=== PATIENT | female | born 1995 | race Caucasian/White ===

== ENCOUNTER 2018-03-02 13:01 | Emergency (ER) | payer MEDICAID, SELFPAY ==
[2018-03-02 13:02] VITALS: BP 115/67; PULSE 105; RESP 16; TEMP 36.8; O2SAT 95; BMI 31.2
--- NOTE | 2018-03-02 13:17 | ED.VISSUMM ---
- ER Visit Summary Date of Service: 03/02/18 Chief Complaint: Left ear pain for 1 week History of Present Illness: The patient is a 22 F who presents with left ear pain for 1 week. She denies any drainage. She does complain of pain with movement of the ear. She states she has not placed a Q-tip in her ear. She has been swimming a lot. She also is concerned she may be . It was determined she had a positive home test. She is late and complains of breast tenderness and frequency. She has no other complaints Physical Examination: Vital signs unremarkable. There is discomfort with pushing on the tragus and pulling on the auricle on the left side. The external auditory canal is erythematous with slight narrowing. TMs are normal bilaterally. There is no discomfort on the right side. Pupils equal round reactive paradoxic muscle intact. Nares patent no discharge. Posterior pharyngeal erythema or exudate. No skin lesions are noted. Test Results: None Emergency Department Course and Treatment: Cortisporin otic suspension Treatment Plan: Cortisporin otic suspension and follow-up with PCP as needed and follow-up with OB since she has a positive test. Disposition: Discharged to home Impression: 1. Acute otitis externa left ear 2. Positive home test This note was generated with [employer] dictation software. It may contain incorrect words, spelling, and punctuation that were not noted in review of the chart prior to signing ED Disposition - Plan for ED Patient: Disposition: Home or Assisted Living Chief Complaint: Ear Problem Instructions: ED Otitis Externa Referrals: Care Physician,No Primary [Primary Care Provider] - Additional Instructions: Instill 4 drops of Cortisporin otic suspension right ear 4 times a day for the next 5-7 days. Keep water out of your ear.
[2018-03-02] MEDS: Neomycin Sulfate/Polymyxin/Hc Susp 10 ML Bottle 4 DRP OTIC (13:35)
== END 2018-03-02 13:37 | disposition home or self-care (01) ==
PROVIDERS: Emergency Provider Emergency Medicine
DX: H60.502 Unspecified acute noninfective otitis externa, left ear (principal); Z32.01 Encounter for pregnancy test, result positive; R35.0 Frequency of micturition
CPT/HCPCS: 99282

== ENCOUNTER 2018-03-16 13:33 | Emergency (ER) | payer MEDICAID, SELFPAY ==
[2018-03-16 13:33] VITALS: BP 108/63; PULSE 82; RESP 18; TEMP 37.1; O2SAT 99; BMI 30.7
--- NOTE | 2018-03-16 13:40 | EKG12_ITS ---
Test Reason : CP Blood Pressure : / mmHG Vent. Rate : 089 BPM Atrial Rate : 089 BPM P-R Int : 118 ms QRS Dur : 082 ms QT Int : 334 ms P-R-T Axes : 055 060 029 degrees QTc Int : 406 ms Normal sinus rhythm Normal ECG Confirmed by LATA PERLA ([id number]), city editor RADHA ANDERSON ([id number]) on 03/20/2018 1:44:59 PM Referred By: JOMAR/LELA Confirmed By:LATA PERLA
--- NOTE | 2018-03-16 13:45 | RAD_ITS ---
STUDY: X-RAY CHEST REASON FOR EXAM: Female, 22 years old. Right-sided pleuritic chest pain. TECHNIQUE: PA and lateral views of the chest. COMPARISON: None. FINDINGS: The lungs are clear and expanded. Scattered calcified granulomas There is no demonstrated pleural abnormality. Normal size heart. Normal mediastinum and olayinka. Normal visualized pulmonary arteries. Normal visualized aortic arch and descending thoracic aorta. Normal visualized thoracic spine. Normal visualized ribs, clavicles, and shoulders. There is no demonstrated abnormality of the visualized soft tissue structures of the upper abdomen. RAD/Chest PA and Lateral IMPRESSION: Normal x-ray examination of the chest. Electronically Signed: Nawaf Hernandez MD at 14:31 EDT Tel [phone], Service support ,
--- NOTE | 2018-03-16 13:48 | ED.DCSUM_ITS ---
- ER Visit Summary Date of Service: 03/16/18 Chief Complaint: Sharp right-sided pleuritic chest pain after taking a deep breath History of Present Illness: The patient is a 22 F who awoke. She took a deep breath and had sharp right-sided chest pain. Pain is mild. There is a pleuritic component. There is no history of PE or DVT. She is 4 weeks gestation. This is her second . She denies headache, any ocular, visual or auditory symptoms. She denies nasal congestion, rhinorrhea, postnasal drainage. She denies sore throat. She denies cough. She does complain of mild shortness of breath. She does complain of nausea. She also reports frequency. She has no other GI or symptoms. She denies vaginal bleeding. Denies leg pain, swelling discoloration. Physical Examination: Patient's vitals are normal. She is not hypoxic nor is she febrile. HEENT exam is unremarkable. Heart is regular without murmur, gallop or rub. S1 and S2 are normal. Lungs are clear to auscultation with good movement of air bilaterally. Equivocal chest pain to palpation. Abdomen is soft nontender. Bowel sounds are present normal. There is no asymmetry, swelling, discoloration, leg vein distention, palpable cords or tenderness along the distribution of the deep venous system. Test Results: EKG performed per nursing protocol is normal with a rate of 89. IN interval normal. Respiration normal. QT interval normal. [place] normal. Two -view chest x-ray reveals no evidence of pneumothorax or infiltrate. X-ray was interpreted by me. Emergency Department Course and Treatment: Patient is PERC negative. 4 weeks gestation is not risk for hypercoagulable state. Therefore d-dimer was not obtained. Because this occurred after taking a deep breath and she complains of shortness of breath will obtain chest x-ray to evaluate for pneumothorax. Treatment Plan: Since patient is Tylenol for discomfort Disposition: Discharged home Impression: Abrupt right-sided chest pain with pleuritic component unknown etiology This note was generated with [employer] dictation software. It may contain incorrect words, spelling, and punctuation that were not noted in review of the chart prior to signing ED Disposition - Plan for ED Patient: Disposition: Home or Assisted Living Chief Complaint: Chest Pain Instructions: ED Chest Pain NonCardiac Referrals: Care Physician,No Primary [Primary Care Provider] - Additional Instructions: Since you are take Tylenol for your chest pain.
== END 2018-03-16 14:42 | disposition home or self-care (01) ==
PROVIDERS: Emergency Provider Emergency Medicine
DX: O26.891 Other specified pregnancy related conditions, first trimester (principal); R07.81 Pleurodynia; Z3A.01 Less than 8 weeks gestation of pregnancy
CPT/HCPCS: 71046; 93005; 99282

== ENCOUNTER → 2018-03-23 18:27 | Outpatient (CLI) | payer MEDICAID, SELFPAY ==
[2018-03-23 20:32] LABS: Chlamydia Trachomatis by PCR Negative (Negative); Neisserai gonorrhoeae by PCR Negative (Negative); Probe Check PASS; Sample Adequacy Control PASS; Specimen Processing Control PASS
[2018-03-29 16:49] LABS: HPV Reflexed? NOT INDICATED
== END ==
PROVIDERS: Visit Provider Obstetrics & Gynecology
DX: Z12.4 Encounter for screening for malignant neoplasm of cervix (principal); Z11.3 Encounter for screening for infections with a predominantly sexual mode of transmission; Z34.81 Encounter for supervision of other normal pregnancy, first trimester
CPT/HCPCS: 87491; 87591; 88175; G0145

== ENCOUNTER → 2018-04-10 10:30 | Outpatient (CLI) | payer MEDICAID, SELFPAY ==
[2018-04-10 12:20] LABS: Color, Urine Yellow (Yellow); Glucose, Dipstick Normal (Normal); Ketone-Dipstick 50 mg/dl (Negative); Leukocyte Esterase-Dipstick 100 /ul (Negative); Nitrite-Dipstick Negative (Negative); Occult Blood-Urine Negative /ul (Negative); Protein-Dipstick Negative (Negative); Urine Bilirubin Dipstick Negative (Negative); Urine Clarity Clear (Clear); Urine Urobilinogen Normal (Normal)
[2018-04-10 12:23] LABS: Absolute Lymphocyte Count 2.14 X10^3/ul (0.83-4.51); Absolute Neutrophil Count 3.9 X10^3/uL (2.0-7.7); Basophil# 0.01 X10^3/uL; Basophil% 0.2 % (0-1); Eosinophil# 0.05 X10^3/uL; Eosinophils% 0.8 % (0-5); Hematocrit 38.7 % (37-47); Hemoglobin 12.9 g/dl (12.0-15.0); Lymphocyte # 2.14 X10^3/ul (4.0); Lymphocyte % 32.2 % (19-41); Mean Corp Hgb Conc 33.3 g/gl (32-36); Mean Corpuscular Hgb 27.4 pg (27.0-32.0); Mean Corpuscular Volume 82.3 fL (81-99); Mean Platelet Vol. 11.5 fl (6.2-12.0); Monocyte% 7.5 % (0-10); Neutrophil # 3.93 X10^3/uL (2.7-7.7); Neutrophil % 59.1 % (47-70); Platelet Count 209 K/mm3 (150-450); RBC Distribution Width CV 13.4 % (11.6-14.6); RBC Distribution Width SD 39.5 fl (35.1-43.9); White Blood Count 6.6 K/mm3 (4.4-11.0)
[2018-04-10 12:24] LABS: POSITIVE COUNT NO; POSITIVE DIFFERENTIAL NO; POSITIVE MORPHOLOGY NO
[2018-04-10 12:36] LABS: COTININE Drug Screen Positive (<200 ng/mL)
[2018-04-10 12:40] LABS: Thyroid Stim Hormone (TSH) 1.47 uIU/mL (0.358-3.74)
[2018-04-10 12:50] LABS: Amphetamine Urine VISTA NEGATIVE (<1000 ng/mL); Barbiturate Urine VISTA NEGATIVE (< 200 ng/mL); Benzodiazepine Urine VISTA NEGATIVE (< 200 ng/mL); Cocaine Urine VISTA NEGATIVE (< 300 ng/mL); Ecstacy Urine VISTA NEGATIVE (< 500 ng/mL); Methadone Urine VISTA NEGATIVE (< 300 ng/mL); PCP Urine VISTA NEGATIVE (< 25 ng/mL); THC Urine VISTA NEGATIVE (< 50 ng/mL); Vista UDS pH Range 6
[2018-04-11 09:11] LABS: HIV - WCH Non-Reactive (Nonreactive); Rubella IgG 11.1 IU/mL
[2018-04-11 11:59] LABS: HEPATITIS B SURFACE AG Negative (Negative); Hep C Antibodies 0.1 s/co ratio (0.0-0.9)
[2018-04-13 01:01] LABS: Prenatal RPR NONREACTIVE (NONREACTIVE)
== END ==
PROVIDERS: Visit Provider Obstetrics & Gynecology
DX: Z34.81 Encounter for supervision of other normal pregnancy, first trimester (principal)
CPT/HCPCS: 36415; 80307; 81002; 84443; 85025; 86703; 86762; 86803; 87340

== ENCOUNTER 2018-08-04 20:39 | Emergency (ER) | payer MEDICAID, SELFPAY ==
[2018-08-04 20:40] VITALS: BP 112/69; PULSE 104; RESP 14; TEMP 36.8; O2SAT 97; BMI 33.5
[2018-08-04] MEDS: Penicillin Vk 250 MG Tablet 500 MG PO (21:25)
--- NOTE | 2018-08-04 21:35 | ED.DCSUM_ITS ---
- ER Visit Summary Date of Service: 08/04/18 Chief Complaint: Dental pain History of Present Illness: The patient is a 22 F presenting due to concern for a dental abscess. Patient states that over the last 2 days she said development of a soft area in her gums over the left maxillary canine tooth. She denies any fevers or constitutional symptoms. Review of systems otherwise negative. Physical Examination: Area of fluctuance over the patient's left maxillary canine tooth. Teeth otherwise appear normal. Soft sublingual space, normal posterior oropharynx, normal Stensen's duct. No trismus. Test Results: No indicated Emergency Department Course and Treatment: Patient presented with potential dental abscess. 21-gauge needle was used to incise with a small amount of pus being expressed. Patient will be placed on penicillin. She was instructed to follow-up with the dentist. Disposition: Discharge Impression: 1. Dental abscess This note was generated with [employer] dictation software. It may contain incorrect words, spelling, and punctuation that were not noted in review of the chart prior to signing ED Disposition - Plan for ED Patient: Disposition: Home or Assisted Living Chief Complaint: Dental Diagnosis: Dental abscess Instructions: Dental Abscess Prescriptions: Penicillin Vk [Pen-Vee K 250MG] 500 mg PO 4X/DAY #80 tab Referrals: Care Physician,No Primary [Primary Care Provider] -
--- NOTE | 2018-10-20 10:04 | OB.TRI.NOTE ---
History of Present Illness Date of Service: 10/15/18 Was patient seen by the physician?: No Reason For Visit: R/O LABOR Date of Service: 10/15/18 Final ASHISH: 11/07/18 Final ASHISH Source: US <20 weeks Gestational age: 36 Weeks and 5 Days History of Present Illness: 36+ week intrauterine presents with some low pelvic pressure. Concerned that she may be in labor. Allergies aspirin [ASA] Allergy (Verified 10/15/18 19:21) Swelling codeine Allergy (Verified 10/15/18 19:21) Swelling latex Allergy (Verified 10/15/18 19:21) Rash Physical Exam Vitals: Vital Signs Temp Pulse Resp BP Pulse Ox 98.3 F 104 H 14 112/69 97 08/04/18 20:40 08/04/18 20:40 08/04/18 20:40 08/04/18 20:40 08/04/18 20:40 NST - FHR Rate Baby A NST Reactive:: Yes FHR Category:: Category I Impression/Plan 36+ week intrauterine with some low pelvic pressure and transient contractions. Occasional contraction noted on monitor but cervix is nonthreatening. Reactive nonstress test. No cervical change after monitoring. Transient contractions noted. Will release to home with routine instructions and routine follow-up in the office.
== END 2018-08-04 21:38 | disposition home or self-care (01) ==
LOC: ED 21:35 → OBT 10-15 19:01
PROVIDERS: Emergency Provider Emergency Medicine
DX: K04.7 Periapical abscess without sinus (principal)
CPT/HCPCS: 41800; 59025; 59050; 99218; 99283; G0378

== ENCOUNTER → 2018-08-17 14:52 | Outpatient (CLI) | payer MEDICAID, SELFPAY ==
[2018-08-04 20:40] VITALS: BMI 33.5
[2018-08-17 15:55] LABS: Hematocrit 32.4 % (37-47); Hemoglobin 10.8 g/dl (12.0-15.0); Mean Corp Hgb Conc 33.3 g/gl (32-36); Mean Corpuscular Hgb 28.5 pg (27.0-32.0); Mean Corpuscular Volume 85.5 fL (81-99); Mean Platelet Vol. 10.8 fl (6.2-12.0); Platelet Count 201 K/mm3 (150-450); RBC Distribution Width CV 12.8 % (11.6-14.6); RBC Distribution Width SD 38.8 fl (35.1-43.9); Red Blood Count 3.79 M/mm3 (4.2-5.4); White Blood Count 12.3 K/mm3 (4.4-11.0)
[2018-08-17 16:04] LABS: Scan Indicated on CBC? Y/N NO
[2018-08-17 16:11] LABS: Glucose Challenge Gest 1H 50g 108 mg/dL (70-140)
== END ==
PROVIDERS: Visit Provider Obstetrics & Gynecology
DX: Z34.83 Encounter for supervision of other normal pregnancy, third trimester (principal)
CPT/HCPCS: 36415; 82950; 85027

== ENCOUNTER 2018-09-11 21:45 | Outpatient (CLI) | payer MEDICAID, SELFPAY ==
[2018-09-11 22:01] VITALS: BMI 33.0
--- NOTE | 2018-09-12 07:44 | OB.TRI.NOTE ---
History of Present Illness Date of Service: 09/11/18 Reason For Visit: R/O LABOR Date of Service: 09/11/18 Final ASHISH: 11/13/18 Gestational age: 31 Weeks and 0 Days History of Present Illness: 22 yo 2P1 female with h/o prior 39 wk delivery presents with CC of contractions and urge to push. Allergies aspirin [ASA] Allergy (Verified 09/11/18 22:22) Swelling codeine Allergy (Verified 09/11/18 22:22) Swelling latex Allergy (Verified 09/11/18 22:22) Rash Physical Exam Cervix Dilation (cm): 0 - ext os FT and int os CLOSED Station: -2 Effacement (%): 40 - (not able to accurately assess this as int os closed) NST - FHR Rate Baby A Baseline: 110-120s with avg vraibility accels to 130-140 VD to 90-105 < 10 sec Variability:: Moderate Accelerations:: 15 x 15 Decelerations:: Variable - to 90 - 105 bpm lasting under 10 sec FHR Category:: Category I Uterine Activity:: No regular UCs noted. Impression/Plan 31 wk female with pelvic discomfort h/o term delivery FALSE LABOR Home Keep next ofc appt as planned.
== END 2018-09-11 23:00 | disposition home or self-care (01) ==
LOC: WPOUT 21:52 → OBT 21:52
PROVIDERS: Visit Provider Obstetrics & Gynecology
DX: O47.03 False labor before 37 completed weeks of gestation, third trimester (principal); Z3A.31 31 weeks gestation of pregnancy
CPT/HCPCS: 59025; 59050; 99218; G0378

== ENCOUNTER 2018-09-25 20:30 | Outpatient (CLI) | payer MEDICAID, SELFPAY ==
[2018-09-25 21:00] VITALS: BMI 33.6
[2018-09-25 21:40] LABS: ROM Internal Control Test YES-OK TO RESULT pt. (Internal QC); ROM Patient Test Negative (Negative); Record Kit Lot#, ROM+ J7836
--- NOTE | 2018-09-26 08:15 | OB.TRI.NOTE ---
History of Present Illness Date of Service: 09/25/18 Was patient seen by the physician?: No Reason For Visit: RULE OUT LABOR Date of Service: 09/25/18 Final ASHISH: 11/07/18 Final ASHISH Source: US <20 weeks Gestational age: 33 wk 6 days History of Present Illness: 22 yo female presesnts with CC of possible ROM. Prior 39 wk delivery. Allergies aspirin [ASA] Allergy (Verified 09/25/18 21:02) Swelling codeine Allergy (Verified 09/25/18 21:02) Swelling latex Allergy (Verified 09/25/18 21:02) Rash Laboratory Studies: Laboratory Tests 09/25/18 Range/Units 21:00 Vag Amniotic Fld Detect Negative (Negative) NST - FHR Rate Baby A Baseline: 120-130s avg variability accels to 160s Variability:: Moderate Accelerations:: 15 x 15 Decelerations:: Variable - quick less than 10 sec to 95 NST Reactive:: Yes, Appropriate for gestational age FHR Category:: Category I Uterine Activity:: no UCs. Impression/Plan 33 6/7 wk ? SROM NEG SROM False labor. home Keep next appt in ofc for PNV. Return PRN to [facility] for increased s/sx of labor, or for dec FM.
== END 2018-09-25 22:05 | disposition home or self-care (01) ==
LOC: WPOUT 20:52 → WP 20:52
PROVIDERS: Referring Provider Obstetrics & Gynecology; Visit Provider Obstetrics & Gynecology
DX: O47.03 False labor before 37 completed weeks of gestation, third trimester (principal); Z3A.33 33 weeks gestation of pregnancy
CPT/HCPCS: 59025; 59050; 84112; 99218; G0378

== ENCOUNTER → 2018-10-12 15:39 | Outpatient (CLI) | payer MEDICAID, SELFPAY ==
[2018-09-25 21:00] VITALS: BMI 33.6
== END ==
PROVIDERS: Visit Provider Obstetrics & Gynecology
DX: Z36.85 Encounter for antenatal screening for Streptococcus B (principal)
CPT/HCPCS: 87081

== ENCOUNTER 2018-10-15 18:55 | Outpatient (CLI) | payer MEDICAID, SELFPAY ==
[2018-10-15 19:10] VITALS: BMI 34.5
--- NOTE | 2018-10-20 10:07 | OB.TRI.NOTE ---
History of Present Illness Date of Service: 10/15/18 Was patient seen by the physician?: No Reason For Visit: Pelvic Pressure Date of Service: 10/15/18 Final ASHISH: 11/07/18 Final ASHISH Source: US <20 weeks Gestational age: 36 Weeks and 5 Days History of Present Illness: 36+ week intrauterine presents with some pelvic pressure and is concerned about being in labor. Allergies aspirin [ASA] Allergy (Verified 10/15/18 19:21) Swelling codeine Allergy (Verified 10/15/18 19:21) Swelling latex Allergy (Verified 10/15/18 19:21) Rash NST - FHR Rate Baby A NST Reactive:: Yes FHR Category:: Category I Impression/Plan 36+ week intrauterine with some low pelvic pressure and transient contractions. Occasional contraction noted on monitor but cervix is nonthreatening. Reactive nonstress test. No cervical change after monitoring. Transient contractions noted. Will release to home with routine instructions and routine follow-up in the office.
== END 2018-10-15 20:12 | disposition home or self-care (01) ==
LOC: WPOUT 10-16 10:24 → OBT 10-16 10:26
PROVIDERS: Visit Provider Obstetrics & Gynecology
DX: Z34.93 Encounter for supervision of normal pregnancy, unspecified, third trimester (principal); Z3A.36 36 weeks gestation of pregnancy
CPT/HCPCS: 59025; 59050; 99218; G0378

== ENCOUNTER 2018-10-20 16:55 | Outpatient (CLI) | payer MEDICAID, SELFPAY ==
[2018-10-20 17:29] VITALS: BMI 34.0
[2018-10-20 17:56] LABS: ROM Internal Control Test YES-OK TO RESULT pt. (Internal QC); ROM Patient Test Negative (Negative); Record Kit Lot#, ROM+ J7836
--- NOTE | 2018-10-22 10:22 | OB.TRI.NOTE ---
History of Present Illness Was patient seen by the physician?: No Reason For Visit: RULE OUT SROM Date of Service: 10/20/18 Final ASHISH: 11/07/18 Final ASHISH Source: US <20 weeks Gestational age: 37 Weeks and 3 Days History of Present Illness: 37+ week intrauterine presents with problems of low back pain and some discharge. care unremarkable except the patient is a smoker. Allergies aspirin [ASA] Allergy (Verified 10/15/18 19:21) Swelling codeine Allergy (Verified 10/20/18 17:32) Swelling Doesn't make her feel better latex Allergy (Verified 10/15/18 19:21) Rash Laboratory Studies: Laboratory Tests 10/20/18 Range/Units 17:15 Vag Amniotic Fld Detect Negative (Negative) Physical Exam Presentation: Cephalic Cervix Dilation (cm): 0 Station: -2 Effacement (%): 50 NST - FHR Rate Baby A Baseline: 110-120 NST Reactive:: Yes FHR Category:: Category I Uterine Activity:: Minimal uterine activity Impression/Plan 37+ week intrauterine with false labor; ROM test was negative. No change in cervix after monitoring. Reactive nonstress test. To return if she has problems with decreased movement or if labor discomfort increases.
== END 2018-10-20 18:40 | disposition home or self-care (01) ==
LOC: WPOUT 17:17 → WP 17:17
PROVIDERS: Visit Provider Obstetrics & Gynecology
DX: O47.1 False labor at or after 37 completed weeks of gestation (principal); O99.333 Smoking (tobacco) complicating pregnancy, third trimester; Z3A.37 37 weeks gestation of pregnancy
CPT/HCPCS: 59025; 59050; 84112; 99218; G0378

== ENCOUNTER 2018-10-24 17:50 | Outpatient (CLI) | payer MEDICAID, SELFPAY ==
[2018-10-24 18:03] VITALS: BMI 33.8
[2018-10-24 18:46] LABS: ROM Internal Control Test YES-OK TO RESULT pt. (Internal QC); ROM Patient Test Negative (Negative); Record Kit Lot#, ROM+ J7836
--- NOTE | 2018-10-26 08:47 | OB.TRI.NOTE ---
History of Present Illness Date of Service: 11/21/18 Was patient seen by the physician?: No Reason For Visit: RULE OUT LABOR Date of Service: 11/21/18 Final ASHISH: 11/07/18 Final ASHISH Source: US <20 weeks Gestational age: 38 Weeks and 2 Days History of Present Illness: Worried possibly with SROM and some cramping Allergies aspirin [ASA] Allergy (Verified 10/15/18 19:21) Swelling codeine Allergy (Verified 10/24/18 18:17) Nausea Doesn't make her feel better latex Allergy (Verified 10/15/18 19:21) Rash Laboratory Studies: Laboratory Tests 10/24/18 Range/Units 18:07 Vag Amniotic Fld Detect Negative (Negative) Physical Exam General: Alert, Oriented x3, Cooperative, No apparent distress Abdomen: Soft, Non Tender, Non-Distended, Gravid, Appropriate for Gestational Age Neurological: Neuro grossly intact 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 No signs of active labor.
== END 2018-10-24 18:52 | disposition home or self-care (01) ==
LOC: WPOUT 17:51 → OBT 17:54
PROVIDERS: Visit Provider Obstetrics & Gynecology
DX: Z34.93 Encounter for supervision of normal pregnancy, unspecified, third trimester (principal); Z3A.38 38 weeks gestation of pregnancy
CPT/HCPCS: 59025; 59050; 84112; 99218; G0378

== ENCOUNTER 2018-10-26 14:30 | Outpatient (CLI) | payer MEDICAID, SELFPAY ==
[2018-10-26 14:53] VITALS: BMI 33.6
[2018-10-26] MEDS: Lactated Ringers 1,000 ML 125 ML IV (15:03)
--- NOTE | 2018-10-27 06:28 | OB.TRI.NOTE ---
History of Present Illness Date of Service: 10/26/18 Was patient seen by the physician?: Yes Reason For Visit: VERSION Date of Service: 10/26/18 Final ASHISH: 11/07/18 Final ASHISH Source: US <20 weeks Gestational age: 38 Weeks and 3 Days History of Present Illness: 22 yo female at 38 + wk with fetus in Breech presentation on sono. MARCI 17 cm and EFW 6# 5 oz. Posterior placenta. Sent in for ECV attempt. Allergies aspirin [ASA] Allergy (Verified 10/26/18 15:01) Swelling codeine Allergy (Verified 10/26/18 15:01) Nausea Doesn't make her feel better latex Allergy (Verified 10/26/18 15:01) Rash Impression/Plan 38 3/7 wk EGA Breech presentation NST reactive External cephalic version attempted without success RTO in 3 - 4 d to repeat sono and exam. If persistent breech, then plan primary C section.
--- NOTE | 2018-10-27 06:35 | PCM.OPRPT ---
Report of Operation Date of Procedure: 10/26/18 Pre-Operative Diagnosis: 38 3/7 wk breech presentation. requesting external cephalic version Post-Operative Diagnosis: Same persistent breech presentation. Surgery/Procedure Performed:: External cephalic version. (trial of) Description of Surgical Findings:: NST reactive. Sono confirms breech prestnation, posterior placenta. VTX in maternal LUQ. Attempted forward roll x three and back flip x one. Intermittent FHR check reassuring , with good tolerance of procedure. Patient tolerated well, but persistent breech presentation confirmed on sono throughout attempt. NST after attempt reactive. Type of Anesthesia:: None Fluids Replaced: LR Description of Procedure: As above. A POSITIVE blood type - Admit VTE Documentation VTE Present on Admission: No VTE Mechan Device Prophylaxis: None VTE Pharm Prophylaxis ordered?: No
== END 2018-10-26 16:30 | disposition home or self-care (01) ==
LOC: LAB 14:31 → WP 14:32
PROVIDERS: Referring Provider Obstetrics & Gynecology; Visit Provider Obstetrics & Gynecology
DX: O32.1XX0 Maternal care for breech presentation, not applicable or unspecified (principal); Z3A.38 38 weeks gestation of pregnancy
CPT/HCPCS: 59025; 59050; 59412; 99218; J7120; G0378

== ENCOUNTER 2018-11-01 09:25 | Inpatient (IN) | payer MEDICAID, SELFPAY ==
[2018-11-01] VITALS (17 sets, daily range): BP systolic 91–117; BP diastolic 39–70; PULSE 63–107; RESP 12–17; TEMP 36–36.4; O2SAT 96–99; BMI 33.8
[2018-11-01 10:05] LABS: Absolute Lymphocyte Count 2.27 X10^3/ul (0.83-4.51); Absolute Neutrophil Count 9.3 X10^3/uL (2.0-7.7); Basophil# 0.02 X10^3/uL; Basophil% 0.2 % (0-1); Eosinophil# 0.09 X10^3/uL; Eosinophils% 0.7 % (0-5); Hematocrit 38.6 % (37-47); Hemoglobin 12.3 g/dl (12.0-15.0); Lymphocyte # 2.27 X10^3/ul (4.0); Lymphocyte % 17.9 % (19-41); Mean Corp Hgb Conc 31.9 g/gl (32-36); Mean Corpuscular Hgb 27.8 pg (27.0-32.0); Mean Corpuscular Volume 87.1 fL (81-99); Mean Platelet Vol. 11.5 fl (6.2-12.0); Monocyte# 0.92 X10^3/uL; Monocyte% 7.3 % (0-10); Neutrophil % 73.5 % (47-70); Platelet Count 162 K/mm3 (150-450); RBC Distribution Width SD 44.1 fl (35.1-43.9); Red Blood Count 4.43 M/mm3 (4.2-5.4); White Blood Count 12.7 K/mm3 (4.4-11.0)
[2018-11-01] MEDS: Lactated Ringers 1,000 ML 999 ML IV (10:10)
[2018-11-01 10:13] LABS: POSITIVE COUNT NO; POSITIVE DIFFERENTIAL NO; POSITIVE MORPHOLOGY NO
[2018-11-01 10:36] LABS: Prothrombin Time (Protime)PT. 13.4 SECONDS (11.7-14.9)
[2018-11-01 10:37] LABS: Partial Thromboplast Time 27.4 Seconds (24.1-36.2)
[2018-11-01] MEDS: Lactated Ringers 1,000 ML 150 ML IV (12:00)
[2018-11-01] MEDS: Sodium Citrate/Citric Acid 30 ML UDC PO (12:25)
[2018-11-01] MEDS: Cefazolin 2 GM in 0.9% Normal Saline 100 ML IV (12:45)
--- NOTE | 2018-11-01 12:56 | FALS_PTH ---
PATIENT: TIA VINSON LOC: [facility] U#:[id number] AGE/SX: ROOM: [facility]008 RE11/01/[address]: Dr. Caro Kumari MD : [id number] BED: 1 DIS: 11/03/2018 SPEC #: [id number] RECD: 11/01/18 14:47 STATUS: RUY REOlga #: [id number] ANGIE: 11/01/18 12:[address]: Caro Tamayo DEPT: SURGICAL PATHOLOGY RECD BY: Loc [place] ENTERED: 11/01/18 14:54 SP TYPE: FALL TUBES OTHR DR: Marianna Primary Care Phys Tissues: Fallopian tube Procedures: Surgery Specimen Level II HEADER OPERATION: Tubal ligation PRE-OP DIAGNOSIS: Desired sterilization TISSUE SUBMITTED: Fallopian tubes, stitch in left tube MICROSCOPIC DIAGNOSIS Right and left fallopian tubes, bilateral partial salpingectomies: Two complete segments of fallopian tubes with no pathologic change. AM:samira 11/02/18 MICROSCOPIC DESCRIPTION Slides are reviewed. GROSS DESCRIPTION Received is one container labeled with the patient's name and designated bilateral fallopian tubes, suture in left tube. The right fallopian tube measures 2 cm in length and 0.5 cm in diameter. The left fallopian tube measures 3 cm in length and 0.6 cm in diameter. The right fallopian tube is inked in black ink. Both fallopian tubes have normal fimbriated ends. No mass lesions are identified. Blueprint Maker sections from both fallopian tubes are submitted in one cassette. / AM:samira 11/01/18 TC:4 CPT: 19845 x2
[2018-11-01] MEDS: Oxytocin 30 units/NS 500 ml 30 UNITS/500 ML IV.SOLN 167 UNITS IV (12:57)
--- NOTE | 2018-11-01 13:31 | PCM.OPRPT ---
Problem List (1) 39 weeks gestation of Status: Acute (2) Breech delivery Status: Acute Qualifiers: Fetus number: single or unspecified fetus Qualified Code(s): O32.1XX0 - Maternal care for breech presentation, not applicable or unspecified (3) delivery delivered Status: Acute Report of Operation Date of Procedure: 11/01/18 Pre-Operative Diagnosis: 39 1/7wga, breech presentation Post-Operative Diagnosis: 39 1/7wga, breech presentation Surgery/Procedure Performed:: Low transverse section, bilateral tubal ligation Description of Surgical Findings:: Normal tubes and ovaries bilaterally Delivery Classification: Scheduled Final ASHISH: 11/07/18 Gestational age: 39 Weeks and 1 Days Indications: 22-year-old 2 para 1001 at 39 1/7 weeks gestational age presenting for scheduled section for breech presentation. She previously had an unsuccessful attempted version and declined repeat version. She also desired sterilization. Reviewed with patient procedure risks including pain, bleeding, hemorrhage possibly requiring dilation curettage or hysterectomy, infection including but not limited to to the urinary tract, wound, incision, intra-abdominal cavity, uterus, sepsis as well as bowel or bladder injury requiring further surgery and transient tachypnea of the . Also reviewed potential for tubal failure including ectopic . Consents for both sterilization and section were signed. And family were given opportunity to ask questions questions answered their satisfaction. Indications for : Breech Description of Procedure: The patient was taken to the operating room and spinal analgesia was administered. She is placed in a dorsal supine position with left lateral tilt. The perineum and abdomen were prepped and draped in sterile fashion. And the spinal was found to be adequate. A Pfannenstiel incision was made using a scalpel and brought down to incise the subcutaneous tissue and rectus fascia at the midline. Subcutaneous tissue was bluntly dissected off the fascia laterally. The fascial incision was dissected laterally and cephalad using curved Bernal scissors. The superior leaflet of the rectus fascia was grasped using Na clamps and bluntly dissected and sharply dissected from the underlying rectus muscle. In a similar fashion the inferior rectus fascia was dissected from the underlying muscle. The rectus muscles were bluntly at the midline. The peritoneum was identified and entered [sharply]. The bladder blade was placed into the abdomen and the vesicouterine peritoneal fold identified. The fold was incised and a bladder flap created. Bladder blade was then repositioned to the abdomen. A low transverse hysterotomy was made using the [Metzenbaum scissors] to level of the membranes. The hysterotomy was extended bluntly cephalad and caudad. The membranes were then ruptured revealing clear fluid. The fetus was footling breech. The lower extremity was delivered and followed by delivery of the breech through the hysterotomy with spontaneously delivery of the left lower extremity. The fetus was delivered to the level of the shoulders using gentle bidirectional rotation. The right, then left upper extremity was swept to deliver. The Eyjnankwc-Xtlazzi-[id number] maneuver was performed with delivery of the infant head. The female infant was stimulated and bulb suctioned. The cord was doubly clamped and cut after 30 seconds. The was passed to awaiting [nursery personnel]. The placenta was [expressed] from the uterus and appeared intact on inspection. The uterus was cleared of debris. The hysterotomy was then repaired using 0 Vicryl running lock suture. A second imbricating layer was also placed for additional hemostasis. The uterus was exteriorized and attention turned to the adnexa. The right ampullary mesosalpinx was grasped using Fraser clamp and a defect was created in the mesosalpinx. The ampullary segment was tied distally and proximally and approximately 2 cm segment was excised. There is good hemostasis. In similar fashion [place] tubal ligation was also performed on the left side. The uterus and adnexa were returned to the abdomen and the hysterotomy again inspected with excellent hemostasis.The bladder blade was removed. The anterior cul-de-sac was cleared of debris. The peritoneum and rectus muscles were reapproximated using 2-0 Vicryl running suture. The rectus fascia was closed using 0 6 running suture. The subcutaneous tissue was reapproximated using 2-0 Vicryl. The skin was closed using 3-0 Monocryl subcuticularly the GLOVE EXAMINER under my supervision. Mepilex occlusive dressing was placed over the incision. The fundus was firm. The patient was then transferred to the recovery room without complication. Sponge, instrument, and needle counts were correct ?2. The patient tolerated procedure well. Amniotic Membrane Rupture Type: Artificial Amniotic Fluid Description: Clear Placenta Disposition: [facility] Drain: Moralez to straight drain Cord Entanglement: None Nuchal Cord Compression: With compression Cord Vessel Description: 3 Vessels Esitmated Blood Loss (ml): 700 Gender: Female (1 minute): 8 - Weight 3015g (5 minute): 9 Delayed cord clamping: Yes Pre-op Antibiotic Given: Ancef 2 grams IV x1 Pt instructed on risks of surgery: Bleeding, Infection, Failure Rate of 1 to 2%, Injury to surrounding structure(s) including bowel and bladder, Availability of other non-permanent control options Complications: None - Admit VTE Documentation VTE Present on Admission: No VTE Mechan Device Prophylaxis: SCD's VTE Pharm Prophylaxis ordered?: No
--- NOTE | 2018-11-01 13:39 | OP.PCM_ITS ---
Problem List (1) 39 weeks gestation of Status: Acute (2) Breech delivery Status: Acute Qualifiers: Fetus number: single or unspecified fetus Qualified Code(s): O32.1XX0 - Maternal care for breech presentation, not applicable or unspecified (3) delivery delivered Status: Acute Report of Operation Date of Procedure: 11/01/18 Pre-Operative Diagnosis: 39 1/7wga, breech presentation Post-Operative Diagnosis: 39 1/7wga, breech presentation Surgery/Procedure Performed:: Low transverse section, bilateral tubal ligation Description of Surgical Findings:: Normal tubes and ovaries bilaterally Delivery Classification: Scheduled Final ASHISH: 11/07/18 Gestational age: 39 Weeks and 1 Days Indications: 22-year-old 2 para 1001 at 39 1/7 weeks gestational age presenting for scheduled section for breech presentation. She previously had an unsuccessful attempted version and declined repeat version. She also desired sterilization. Reviewed with patient procedure risks including pain, bleeding, hemorrhage possibly requiring dilation curettage or hysterectomy, infection including but not limited to to the urinary tract, wound, incision, intra- abdominal cavity, uterus, sepsis as well as bowel or bladder injury requiring further surgery and transient tachypnea of the . Also reviewed potential for tubal failure including ectopic . Consents for both sterilization and section were signed. And family were given opportunity to ask questions questions answered their satisfaction. Indications for : Breech Description of Procedure: The patient was taken to the operating room and spinal analgesia was administered. She is placed in a dorsal supine position with left lateral tilt. The perineum and abdomen were prepped and draped in sterile fashion. And the spinal was found to be adequate. A Pfannenstiel incision was made using a scalpel and brought down to incise the subcutaneous tissue and rectus fascia at the midline. Subcutaneous tissue was bluntly dissected off the fascia laterally. The fascial incision was dissected laterally and cephalad using curved Bernal scissors. The superior leaflet of the rectus fascia was grasped using Na clamps and bluntly dissected and sharply dissected from the underlying rectus muscle. In a similar fashion the inferior rectus fascia was dissected from the underlying muscle. The rectus muscles were bluntly at the midline. The peritoneum was identified and entered [sharply]. The bladder blade was placed into the abdomen and the vesicouterine peritoneal fold identified. The fold was incised and a bladder flap created. Bladder blade was then repositioned to the abdomen. A low transverse hysterotomy was made using the [Metzenbaum scissors] to level of the membranes. The hysterotomy was extended bluntly cephalad and caudad. The membranes were then ruptured revealing clear fluid. The fetus was footling breech. The lower extremity was delivered and followed by delivery of the breech through the hysterotomy with spontaneously delivery of the left lower extremity. The fetus was delivered to the level of the shoulders using gentle bidirectional rotation. The right, then left upper extremity was swept to deliver. The Luwqhsway-Ggvanqy-Vzmo maneuver was performed with delivery of the infant head. The female was stimulated and bulb suctioned. The cord was doubly clamped and cut after 30 seconds. The infant was passed to awaiting [nursery personnel]. The placenta was [expressed] from the uterus and appeared intact on inspection. The uterus was cleared of debris. The hysterotomy was then repaired using 0 Vicryl running lock suture. A second imbricating layer was also placed for additional hemostasis. The uterus was exteriorized and attention turned to the adnexa. The right ampullary mesosalpinx was grasped using Caden clamp and a defect was created in the mesosalpinx. The ampullary segment was tied distally and proximally and approximately 2 cm segment was excised. There is good hemostasis. In similar fashion Colona tubal ligation was also performed on the left side. The uterus and adnexa were returned to the abdomen and the hysterotomy again inspected with excellent hemostasis.The bladder blade was removed. The anterior cul-de-sac was cleared of debris. The peritoneum and rectus muscles were reapproximated using 2-0 Vicryl running suture. The rectus fascia was closed using 0 6 running suture. The subcutaneous tissue was reapproximated using 2-0 Vicryl. The skin was closed using 3-0 Monocryl subcuticularly the PRESS FEEDER BROOMCORN under my supervision. Mepilex occlusive dressing was placed over the incision. The fundus was firm. The patient was then transferred to the recovery room without complication. Sponge, instrument, and needle counts were correct ?2. The patient tolerated procedure well. Amniotic Membrane Rupture Type: Artificial Amniotic Fluid Description: Clear Placenta Disposition: [facility] Drain: Moralez to straight drain Cord Entanglement: None Nuchal Cord Compression: With compression Cord Vessel Description: 3 Vessels Esitmated Blood Loss (ml): 700 Infant Gender: Female (1 minute): 8 - Weight 3015g (5 minute): 9 Delayed cord clamping: Yes Pre-op Antibiotic Given: Ancef 2 grams IV x1 Pt instructed on risks of surgery: Bleeding, Infection, Failure Rate of 1 to 2%, Injury to surrounding structure(s) including bowel and bladder, Availability of other non-permanent control options Complications: None - Admit VTE Documentation VTE Present on Admission: No VTE Mechan Device Prophylaxis: SCD's VTE Pharm Prophylaxis ordered?: No
[2018-11-01 14:45] LABS: Pathology Specimen OB SEE PATHOLOGY REPORT
[2018-11-01] MEDS: Nalbuphine 10 MG/ML Ampul 5 MG IV ×3 (14:46→20:03)
[2018-11-01] MEDS: Lactated Ringers 1,000 ML 100 ML IV (18:50)
[2018-11-01] MEDS: Acetaminophen 500 MG Tablet 1000 MG PO (23:02)
[2018-11-02] VITALS (12 sets, daily range): BP systolic 106–134; BP diastolic 39–67; PULSE 69–99; RESP 15–18; TEMP 36.4–36.7; O2SAT 95–98
[2018-11-02] MEDS: Lactated Ringers 1,000 ML 100 ML IV (05:14)
[2018-11-02] MEDS: DiphenhydrAMINE 25 MG Capsule PO (05:19)
[2018-11-02 05:36] LABS: Hematocrit 32.1 % (37-47); Hemoglobin 10.1 g/dl (12.0-15.0); Mean Corp Hgb Conc 31.5 g/gl (32-36); Mean Corpuscular Hgb 27.7 pg (27.0-32.0); Mean Corpuscular Volume 88.2 fL (81-99); Mean Platelet Vol. 11.4 fl (6.2-12.0); Platelet Count 136 K/mm3 (150-450); RBC Distribution Width CV 13.9 % (11.6-14.6); RBC Distribution Width SD 43.8 fl (35.1-43.9); Red Blood Count 3.64 M/mm3 (4.2-5.4); White Blood Count 11.5 K/mm3 (4.4-11.0)
[2018-11-02 06:00] LABS: Scan Indicated on CBC? Y/N NO
[2018-11-02] MEDS: Acetaminophen 500 MG Tablet 1000 MG PO ×2 (08:34→16:40)
--- NOTE | 2018-11-02 09:00 | PCM.PN.OB ---
Patient Problems: Active and Suspected Problems 39 weeks gestation of (Acute) Breech delivery (Acute) delivery delivered (Acute) Subjective: Had little sleep last night. Infant is latching well. OOB. Has not voided yet. No flatus yet. Denies chest pain, shortness of breath. Pain is manageable. States she tolerates Ibuprofen, Aleve without side effects, but usually takes Tylenol as tihs works best for her pain. Denies heavy lochia. Tolerates PO. Objective: avss - Physical Exam General: Alert, Oriented x3, Cooperative, No apparent distress HEENT: Atraumatic, Normocephalic Lungs: Clear to auscultation, Normal air movement Cardiovascular: Regular rate, Regular Rhythm, Normal S1, Normal S2 Abdomen: Soft, Non Tender, Non-Distended, Hypoactive Bowel Sounds, - - Fundus firm and nontender, incisional dressing c/d/i, lochia scant Extremities: No edema, No Calf Tenderness Neurological: Neuro grossly intact Psych/Mental Status: Normal Affect, Appropriate, Alert and oriented to time, place, person, mood and affect Vital Signs Temp Pulse Resp BP Pulse Ox 98.1 F 77 16 108/59 L 98 11/02/18 16:40 11/02/18 16:40 11/02/18 16:40 11/02/18 16:40 11/02/18 12:00 Oxygen Delivery Method Room Air Weight: 86.636 kg Body Mass Index (BMI) 33.8 Intake and Output for Last 24 Hours 10/31/18 11/01/18 11/02/18 23:59 23:59 23:59 Intake Total 1754 / 1754 2830 / 2830 Output Total 950 / 950 3750 / 3750 Balance 804 / 804 -920 / -920 Laboratory Tests Past 24 Hrs 11/02/18 05:12 WBC 11.5 H RBC 3.64 L Hgb 10.1 L Hct 32.1 L MCV 88.2 MCH 27.7 MCHC 31.5 L RDW 13.9 RDW Differential 43.8 Plt Count 136 L MPV 11.4 Medical Necessity - Tobacco Use Smoking Status: Current every day smoker Assessment/Plan All Active Problems 39 weeks gestation of (Acute) Breech delivery (Acute) delivery delivered (Acute) POD#1 s/p PLTCS, BTL for breech presentation doing well. -Will order Naproxen for additional pain relief -Routine postop care -Rh positive -Rubella immune -
[2018-11-02] MEDS: Senna/Docusate Sodium 1 Tablet PO (11:14)
[2018-11-02] MEDS: Prenatal Vits Tablet 1 TABLET PO (11:15)
[2018-11-02] MEDS: oxyCODONE 5 MG Tablet PO ×3 (13:07→21:34)
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
--- NOTE | 2018-11-02 21:31 | DCINST_ITS ---
Discharge Diet: No Restrictions Discharge Activity: Return to Normal Activity, May not drive while taking narcotic pain medications., May Shower May resume sexual activity in: 6 weeks Lifting Restrictions: 10 lb Call your doctor if you observe: Fever of 101 or Higher, Inability to urinate, Inability to have a bowel movement, Using more than one pad per hour, Shortness of breath, Chest pain, Calf discomfort, Uncontrolled pain Suture Line Care: Avoid Pulling/Pushing Remove Dressing in (days):: 3 Cleanse incision/area with: Soap & Water Additional Instructions: If you experience any of the following, contact your healthcare provider. * Bleeding that soaks a pad every hour for 2 hours * Fever 100.4 or higher * Unrelieved incision or abdominal pain * Swelling, redness, discharge or bleeding from your incision or episiotomy site * Your incision begins to separate * Problems urinating (including inability to urinate or burning while u rinating). * Visual changes * Severe headache * Flu-like symptoms * Pain or redness in one of both of your breasts * Pain, warmth, tenderness or swelling in your legs, especially the calf area * Frequent nausea and vomiting * Symptoms of depression or anxiety If you experience any of the following, call 911 or go to the nearest Emergency Room. * Chest pain * Problems breathing * Seizure activity * Partial or complete paralysis of a body part, slurred speech, weakness or drooping of the face, or a sudden inability to walk or hold your balance Allergies/Adverse Reactions: Allergies aspirin [ASA] Allergy (Verified 11/01/18 09:49) Swelling codeine Allergy (Verified 11/01/18 09:49) Nausea Doesn't make her feel better latex Allergy (Verified 11/01/18 09:49) Rash Medications to take at Discharge Pnv No.121/Iron/Folic Acid [ Multivitamin Tablet] 1 each PO DAILY 08/04/18 Docusate Sodium 100 mg PO BID PRN #60 tablet 11/02/18 Naproxen 1 - 2 tab PO BID PRN #30 tablet 11/02/18 Oxycodone [Oxyir] 1 - 2 tab PO Q6H PRN PRN 7 Days #20 tablet 11/02/18 The following prescriptions were given: Oxycodone [Oxyir] 1 - 2 tab PO Q6H PRN PRN 7 Days #20 tablet PRN Reason: Mod-Severe Pain (4-06/06) Docusate Sodium 100 mg PO BID PRN #60 tablet PRN Reason: Constipation Naproxen 1 - 2 tab PO BID PRN #30 tablet PRN Reason: Pain Follow-Up: Call to make an appointment with your doctor for an incision check in 1-2 weeks. You will also need a 6 week post- follow up appointment. Test results from this visit will be discussed in further detail at your follow- up appointment, if applicable. Please Follow Up With: Dilcia Martinez MD When: 1-2 weeks for incision check Please Follow Up With: Dilcia Martinez MD When: 6 weeks for visit Primary Care Physician: Care Physician,No Primary [Primary Care Provider] -
[2018-11-03] MEDS: Acetaminophen 500 MG Tablet 1000 MG PO (01:52)
[2018-11-03 02:20] VITALS: BP 118/61; PULSE 79; RESP 16; TEMP 37.1; O2SAT 95
[2018-11-03] MEDS: oxyCODONE 5 MG Tablet PO ×2 (02:51→11:07)
[2018-11-03 08:04] VITALS: BP 114/60; PULSE 87; RESP 18; TEMP 36.5; O2SAT 98
[2018-11-03] MEDS: Naproxen 250 MG Tablet 500 MG PO (08:10)
--- NOTE | 2018-11-03 08:35 | PCM.PN.OB ---
Patient Problems: Active and Suspected Problems 39 weeks gestation of (Acute) Breech delivery (Acute) delivery delivered (Acute) Subjective: No issues overnight. Pain improved today. Passing flatus and out of bed. +flatus. Tolerates PO. nursing better today. Denies heavy lochia. Objective: avss - Physical Exam General: Alert, Oriented x3, Cooperative, No apparent distress HEENT: Atraumatic, Normocephalic Lungs: Clear to auscultation, Normal air movement Cardiovascular: Regular rate, Regular Rhythm Abdomen: Soft, Non Tender, Non-Distended, Hypoactive Bowel Sounds, - - Fundus firm and nontender Extremities: No Calf Tenderness, - - trace LE edema Neurological: Neuro grossly intact Psych/Mental Status: Normal Affect, Appropriate, Alert and oriented to time, place, person, mood and affect Vital Signs Temp Pulse Resp BP Pulse Ox 97.7 F L 87 18 114/60 98 11/03/18 08:04 11/03/18 08:04 11/03/18 08:04 11/03/18 08:04 11/03/18 08:04 Oxygen Delivery Method Room Air Weight: 86.636 kg Body Mass Index (BMI) 33.8 Intake and Output for Last 24 Hours 11/01/18 11/02/18 11/03/18 23:59 23:59 23:59 Intake Total 1754 / 1754 2830 / 2830 Output Total 950 / 950 3750 / 3750 Balance 804 / 804 -920 / -920 Medical Necessity - Tobacco Use Smoking Status: Current every day smoker Assessment/Plan All Active Problems 39 weeks gestation of (Acute) Breech delivery (Acute) delivery delivered (Acute) POD#2 s/p PLTCS, BTL for breech presentation doing well. -Rh positive -Rubella immune - -Routine postop care -d/c home
[2018-11-03] MEDS: Prenatal Vits Tablet 1 TABLET PO (11:07)
[2018-11-03 11:46] VITALS: BP 118/62; PULSE 82; RESP 18; TEMP 36.5; O2SAT 99
== END 2018-11-03 12:45 | disposition home or self-care (01) | DRG 540 ==
PROVIDERS: Admitting Provider Obstetrics & Gynecology; Referring Provider Obstetrics & Gynecology; Visit Provider Obstetrics & Gynecology
PROC: 10D00Z1 Extraction of Products of Conception, Low, Open Approach (ICD-10-PCS; CPT 59514; principal; 2018-11-01 11:45)
DX: O32.8XX0 Maternal care for other malpresentation of fetus, not applicable or unspecified (principal); Z30.2 Encounter for sterilization; O99.02 Anemia complicating childbirth; O69.1XX0 Labor and delivery complicated by cord around neck, with compression, not applicable or unspecified; O99.334 Smoking (tobacco) complicating childbirth; Z86.32 Personal history of gestational diabetes; Z3A.39 39 weeks gestation of pregnancy; Z37.0 Single live birth
CPT/HCPCS: 85025; 85027; 85610; 85730; 86850; 86900; 88302; 99218; J7120; G0378

== ENCOUNTER 2019-01-19 08:56 | Emergency (ER) | payer MEDICAID, SELFPAY ==
[2018-11-01 09:40] VITALS: BMI 33.8
[2019-01-19 08:57] VITALS: BP 114/67; PULSE 95; RESP 17; TEMP 36.8; O2SAT 97; BMI 31.6
--- NOTE | 2019-01-19 09:50 | ED.VISSUMM ---
- ER Visit Summary Date of Service: 01/19/19 Chief Complaint: Bilateral ear pain History of Present Illness: The patient is a 23 F with bilateral ear pain for the past week. Worse on the right side. Associated with itching. Patient denies any topical medications or Q-tips. Denies fever or systemic symptoms. Physical Examination: Afebrile and vital signs unremarkable. Canals are slightly erythematous, more so on the right side. Mild tragus tenderness on the right side. TMs appear unremarkable. No lymphadenopathy. Skin appears normal otherwise. Otherwise unremarkable exam. Test Results: None performed Emergency Department Course and Treatment: Patient will be treated with antibiotic drops. Use [id number] remedies for pain. Follow-up with primary care for recheck. Treatment Plan: As above Disposition: Discharge Impression: 1. Bilateral ear pain This note was generated with [employer] dictation software. It may contain incorrect words, spelling, and punctuation that were not noted in review of the chart prior to signing ED Disposition - Plan for ED Patient: Referrals: Care Physician,No Primary [Primary Care Provider] -
--- NOTE | 2019-01-19 09:53 | ED.DEP ---
ED Disposition - Plan for ED Patient: Instructions: ED Otitis Externa Prescriptions: Neomycin Sulfate/Polymyxin/Hc [Otocort Soln] 4 drp EACH EAR Q6H 7 Days #1 bottle Referrals: Abril Purdy [NON-STAFF] -
--- NOTE | 2019-01-19 10:07 | ED.RN ---
DISCHARGE INSTRUCTIONS GIVEN TO AND REVIEWED WITH PATIENT, PATIENT DENIES QUESTIONS OR CONCERNS AND VOICES UNDERSTANDING OF DISCHARGE INSTRUCTIONS. PT AMBULATES OUT OF ROOM WITHOUT DIFFICULTY.
== END 2019-01-19 10:07 | disposition home or self-care (01) ==
PROVIDERS: Emergency Provider Emergency Medicine
DX: H92.03 Otalgia, bilateral (principal); Z72.0 Tobacco use
CPT/HCPCS: 99282

== ENCOUNTER 2019-02-06 21:11 | Emergency (ER) | payer MEDICAID, SELFPAY ==
[2019-02-06 21:12] VITALS: BP 112/73; PULSE 82; RESP 20; TEMP 36.6; O2SAT 100; BMI 32.1
--- NOTE | 2019-02-06 21:32 | EKG12_ITS ---
Test Reason : CP Blood Pressure : / mmHG Vent. Rate : 072 BPM Atrial Rate : 072 BPM P-R Int : 118 ms QRS Dur : 084 ms QT Int : 392 ms P-R-T Axes : 037 057 029 degrees QTc Int : 429 ms Normal sinus rhythm Normal ECG Confirmed by RUCHI MORELOS, SENTHIL ([id number]), food editor BONNIE WYATT ([id number]) on 02/08/2019 9:28:45 AM Referred By: MIROSLAVA/AMY Confirmed By:SENTHIL HOPPER MD
--- NOTE | 2019-02-06 21:35 | RAD_ITS ---
STUDY: X-RAY CHEST REASON FOR EXAM: Female, 23 years old. Sternal chest pain x5 days. TECHNIQUE: Single frontal view of the chest. COMPARISON: March 16, 2018 FINDINGS: There is no new focal consolidation. Normal size heart. Normal mediastinum and olayinka. Normal visualized pulmonary arteries. Normal visualized aortic arch and descending thoracic aorta. Normal visualized thoracic spine. Normal visualized ribs, clavicles, and shoulders. There is no demonstrated abnormality of the visualized soft tissue structures of the upper abdomen. RAD/Chest 1 View (Portable) IMPRESSION: No acute cardiopulmonary process. Electronically Signed: Steff Caldwell MD at 21:49 EDT Tel , Service support ,
[2019-02-06 21:39] LABS: Absolute Lymphocyte Count 4.54 X10^3/ul (0.83-4.51); Basophil# 0.02 X10^3/uL; Basophil% 0.2 % (0-1); Eosinophil# 0.13 X10^3/uL; Eosinophils% 1.1 % (0-5); Hematocrit 39.7 % (37-47); Hemoglobin 13.2 g/dl (12.0-15.0); Lymphocyte # 4.54 X10^3/ul (4.0); Lymphocyte % 39.8 % (19-41); Mean Corp Hgb Conc 33.2 g/gl (32-36); Mean Corpuscular Hgb 27.8 pg (27.0-32.0); Mean Corpuscular Volume 83.6 fL (81-99); Mean Platelet Vol. 10.4 fl (6.2-12.0); Monocyte# 0.68 X10^3/uL; Neutrophil # 6.02 X10^3/uL (2.7-7.7); Neutrophil % 52.8 % (47-70); Platelet Count 254 K/mm3 (150-450); RBC Distribution Width CV 13.4 % (11.6-14.6); RBC Distribution Width SD 41.2 fl (35.1-43.9); Red Blood Count 4.75 M/mm3 (4.2-5.4); White Blood Count 11.4 K/mm3 (4.4-11.0)
[2019-02-06 21:46] LABS: POSITIVE COUNT NO; POSITIVE DIFFERENTIAL NO; POSITIVE MORPHOLOGY NO
[2019-02-06 21:50] LABS: Anion Gap 5 (5-15); BUN 13 mg/dL (7-18); BUN/Creat Ratio 15.3 RATIO (10-20); Calcium,Total 9.3 mg/dL (8.5-10.1); Chloride 108 mmol/L (98-107); Creatinine, Serum 0.85 mg/dL (0.55-1.02); EST Glomerular Filtration Rate 87 mL/min (>60); Est Glom Filt Rate - Afr Amer 105 mL/min (>60); Estimated Creatinine Clearance 88.13 ml/min; Glucose 90 mg/dL (74-106); Potassium 3.6 mmol/L (3.5-5.1); Sodium Level 138 mmol/L (136-145)
--- NOTE | 2019-02-06 22:34 | ED.VISSUMM ---
- ER Visit Summary Date of Service: 02/06/19 Chief Complaint: Midsternal chest pain History of Present Illness: The patient is a 23 F no seen past medical or surgical history. Last surgery was more than 3 months ago she had a . Patient states the last 5 days she is in intermittent midsternal chest pain. Not associated with exertion. No fever or cough. No hemoptysis. It is not pleuritic. She has no leg pain or swelling. She is never had a DVT or PE. She said no recent surgery or hospitalization more recently than 3 months ago. Breath. Physical Examination: Young female no acute distress. Vital signs are stable and afebrile. Pulse ox 9% on room air no signs of hypoxia. Her heart rate 82. HEENT exam unremarkable. Neck nontender no JVD. Lungs clear to auscultation bilaterally. Heart regular rhythm no murmur rate about 70. Chest wall she has mild reproducible midsternal chest discomfort. There is no ecchymosis or bruising. No redness or warmth. Abdomen is soft and nontender. Normal bowel sounds no peritoneal signs. Patient moving all 4 extremities. Neurovascular intact. Calves are nontender without edema or cords. She is equal and symmetrical radial pulses. Back nontender. Neurologically she is awake and alert. Test Results: CBC normal white count 11. Hemoglobin 13. Electrolytes unremarkable normal creatinine and gap. Troponin normal. These were ordered by nursing prior to my evaluation the patient. EKG sinus rhythm rate of 72 no acute signs of [place] or ischemia. No S1 every 3 or T3. Her chest x-ray showed a normal cardiac silhouette and mediastinum. Otherwise unremarkable. Emergency Department Course and Treatment: Patient's history exam is consistent with chest wall tenderness. She really has no significant risk factors for DVT or PE. This does not appear to be cardiac and she is very young. Her work-up is negative I am comfortable with her being discharged home. Treatment Plan: Motrin and Tylenol for pain. Follow-up if not improving. Disposition: Discharge Impression: Chest wall pain This note was generated with [employer] dictation software. It may contain incorrect words, spelling, and punctuation that were not noted in review of the chart prior to signing ED Disposition - Plan for ED Patient: Referrals: Care Physician,No Primary [Primary Care Provider] -
--- NOTE | 2019-02-06 22:37 | ED.DCSUM_ITS ---
- ER Visit Summary Date of Service: 02/06/19 Chief Complaint: Midsternal chest pain History of Present Illness: The patient is a 23 F no seen past medical or surgical history. Last surgery was more than 3 months ago she had a . Patient states the last 5 days she is in intermittent midsternal chest pain. Not associated with exertion. No fever or cough. No hemoptysis. It is not pleuritic. She has no leg pain or swelling. She is never had a DVT or PE. She said no recent surgery or hospitalization more recently than 3 months ago. Breath. Physical Examination: Young female no acute distress. Vital signs are stable and afebrile. Pulse ox 9% on room air no signs of hypoxia. Her heart rate 82. HEENT exam unremarkable. Neck nontender no JVD. Lungs clear to auscultation bilaterally. Heart regular rhythm no murmur rate about 70. Chest wall she has mild reproducible midsternal chest discomfort. There is no ecchymosis or bruising. No redness or warmth. Abdomen is soft and nontender. Normal bowel sounds no peritoneal signs. Patient moving all 4 extremities. Neurovascular intact. Calves are nontender without edema or cords. She is equal and symmetrical radial pulses. Back nontender. Neurologically she is awake and alert. Test Results: CBC normal white count 11. Hemoglobin 13. Electrolytes unremarkable normal creatinine and gap. Troponin normal. These were ordered by nursing prior to my evaluation the patient. EKG sinus rhythm rate of 72 no acute signs of HI or ischemia. No S1 every 3 or T3. Her chest x-ray showed a normal cardiac silhouette and mediastinum. Otherwise unremarkable. Emergency Department Course and Treatment: Patient's history exam is consistent with chest wall tenderness. She really has no significant risk factors for DVT or PE. This does not appear to be cardiac and she is very young. Her work-up is negative I am comfortable with her being discharged home. Treatment Plan: Motrin and Tylenol for pain. Follow-up if not improving. Disposition: Discharge Impression: Chest wall pain This note was generated with [employer] dictation software. It may contain incorrect words, spelling, and punctuation that were not noted in review of the chart prior to signing ED Disposition - Plan for ED Patient: Referrals: Care Physician,No Primary [Primary Care Provider] -
--- NOTE | 2019-02-06 22:37 | ED.DEP ---
ED Disposition - Plan for ED Patient: Disposition: Home or Assisted Living Instructions: ED Strain Chest Wall Referrals: Nicholas Parsons MD [STAFF PHYSICIAN] - 3-5 Days if not improving Additional Instructions: Motrin for pain and inflammation. Ice to chest wall. This should progressively get better if not follow-up. Return if feeling worse.
[2019-02-06 22:50] VITALS: BP 102/57; PULSE 70; RESP 16; O2SAT 100
== END 2019-02-06 22:51 | disposition home or self-care (01) ==
PROVIDERS: Emergency Provider Emergency Medicine
DX: R07.89 Other chest pain (principal); R11.0 Nausea; R19.7 Diarrhea, unspecified; Z72.0 Tobacco use
CPT/HCPCS: 71045; 80048; 84484; 85025; 93005; 99285; A4216

== ENCOUNTER 2019-02-11 20:31 | Emergency (ER) | payer MEDICAID, SELFPAY ==
[2019-02-11 20:32] VITALS: BP 121/77; PULSE 85; RESP 16; TEMP 36.3; O2SAT 99; BMI 30.9
[2019-02-11 22:02] LABS: Bacteria 0 SEEN /hpf (None Seen); Red Blood Cells-Urine 0 SEEN /hpf (0-5); Squamous Epithelial Cells - UA 0 SEEN /hpf (5-10)
[2019-02-11 22:02] LABS: Absolute Lymphocyte Count 3.35 X10^3/ul (0.83-4.51); Absolute Neutrophil Count 4.7 X10^3/uL (2.0-7.7); Basophil# 0.01 X10^3/uL; Basophil% 0.1 % (0-1); Eosinophil# 0.14 X10^3/uL; Eosinophils% 1.6 % (0-5); Hematocrit 38.2 % (37-47); Hemoglobin 12.5 g/dl (12.0-15.0); Lymphocyte # 3.35 X10^3/ul (4.0); Lymphocyte % 37.8 % (19-41); Mean Corp Hgb Conc 32.7 g/gl (32-36); Mean Corpuscular Hgb 27.8 pg (27.0-32.0); Mean Corpuscular Volume 85.1 fL (81-99); Mean Platelet Vol. 10.3 fl (6.2-12.0); Monocyte# 0.65 X10^3/uL; Monocyte% 7.3 % (0-10); Neutrophil # 4.71 X10^3/uL (2.7-7.7); Neutrophil % 53.1 % (47-70); Platelet Count 221 K/mm3 (150-450); RBC Distribution Width CV 13.3 % (11.6-14.6); RBC Distribution Width SD 41.3 fl (35.1-43.9); Red Blood Count 4.49 M/mm3 (4.2-5.4); White Blood Count 8.9 K/mm3 (4.4-11.0)
[2019-02-11 22:03] LABS: POSITIVE COUNT NO; POSITIVE DIFFERENTIAL NO; POSITIVE MORPHOLOGY NO
[2019-02-11 22:10] LABS: Color, Urine Yellow (Yellow); Glucose, Dipstick Normal (Normal); Internal QC Validated? YES +Cl - CLEAR BKGD; Ketone-Dipstick 5 mg/dl (Negative); Leukocyte Esterase-Dipstick 25 /ul (Negative); Nitrite-Dipstick Negative (Negative); Occult Blood-Urine Negative /ul (Negative); Pregnancy, Urine Negative Negative; Protein-Dipstick 15 mg/dl (Negative); Urine Bilirubin Dipstick Negative (Negative); Urine Clarity Clear (Clear); Urine Urobilinogen 1 mg/dl (Normal)
[2019-02-11 22:14] LABS: Mucous, Urine 3+ /hpf (<or=2+); White Blood Cells 0-5 SEEN /hpf (0-5)
[2019-02-11 22:17] LABS: ALB/GLOB Ratio 0.9 RATIO (0.9-2.4); AST(SGOT) 28 U/L (15-37); Alanine Aminotransfer ALT/SGPT 97 U/L (13-56); Albumin, Serum 3.5 g/dL (3.2-5.0); Alkaline Phosphatase 88 U/L (45-117); Anion Gap 6 (5-15); BUN 10 mg/dL (7-18); BUN/Creat Ratio 11.7 RATIO (10-20); Calcium,Total 8.9 mg/dL (8.5-10.1); Chloride 103 mmol/L (98-107); Creatinine, Serum 0.85 mg/dL (0.55-1.02); EST Glomerular Filtration Rate 87 mL/min (>60); Est Glom Filt Rate - Afr Amer 105 mL/min (>60); Estimated Creatinine Clearance 88.13 ml/min; Glucose 82 mg/dL (74-106); Lipase 77 U/L (73-393); Potassium 3.5 mmol/L (3.5-5.1); Protein, Total 7.5 g/dL (6.4-8.2); Sodium Level 140 mmol/L (136-145)
--- NOTE | 2019-02-11 22:40 | ED.VISSUMM ---
- ER Visit Summary Date of Service: 02/11/19 Chief Complaint: Abdominal pain History of Present Illness: The patient is a 23 F who presents with abdominal pain. Started today. It is a continuous dull aching in the right upper quadrant. She describes as a 1 out of 10. She has had nausea with vomiting today as well. She also admits to diarrhea. She is concerned that it could be her gallbladder. Denies urinary symptoms. She took nothing for it at home. She has had a but no other abdominal surgeries. Physical Examination: Vital signs reviewed. HEENT exam unremarkable. Heart is regular rate and rhythm without murmurs. Lungs are clear to auscultation. Abdomen is soft and nontender. Extremities reveal no edema. Skin exam normal. Neurologic exam normal. Test Results: ALT of 97 otherwise unremarkable Emergency Department Course and Treatment: The patient looks well. She does not appear septic or toxic. He does not appear that her gallbladder is causing issues at this time. We will give her Bentyl for home. She will follow-up with her PCP Treatment Plan: [] Disposition: Discharge Impression: Abdominal pain This note was generated with [employer] dictation software. It may contain incorrect words, spelling, and punctuation that were not noted in review of the chart prior to signing ED Disposition - Plan for ED Patient: Referrals: Care Physician,No Primary [Primary Care Provider] -
--- NOTE | 2019-02-11 22:43 | ED.DCSUM_ITS ---
- ER Visit Summary Date of Service: 02/11/19 Chief Complaint: Abdominal pain History of Present Illness: The patient is a 23 F who presents with abdominal pain. Started today. It is a continuous dull aching in the right upper quadrant. She describes as a 1 out of 10. She has had nausea with vomiting tod ay as well. She also admits to diarrhea. She is concerned that it could be her gallbladder. Denies urinary symptoms. She took nothing for it at home. She has had a but no other abdominal surgeries. Physical Examination: Vital signs reviewed. HEENT exam unremarkable. Heart is regular rate and rhythm without murmurs. Lungs are clear to auscultation. Abdomen is soft and nontender. Extremities reveal no edema. Skin exam normal. Neurologic exam normal. Test Results: ALT of 97 otherwise unremarkable Emergency Department Course and Treatment: The patient looks well. She does not appear septic or toxic. He does not appear that her gallbladder is causing issues at this time. We will give her Bentyl for home. She will follow-up with her PCP Treatment Plan: [] Disposition: Discharge Impression: Abdominal pain This note was generated with [employer] dictation software. It may contain incorrect words, spelling, and punctuation that were not noted in review of the chart prior to signing ED Disposition - Plan for ED Patient: Referrals: Care Physician,No Primary [Primary Care Provider] -
--- NOTE | 2019-02-11 22:43 | ED.DEP ---
ED Disposition - Plan for ED Patient: Disposition: Home or Assisted Living Instructions: ED Abdominal Pain Unkn Cause Prescriptions: Dicyclomine HCl [Bentyl] 20 mg PO TIDAC #20 cap Referrals: Care Physician,No Primary [Primary Care Provider] -
[2019-02-11 22:50] VITALS: BP 127/77; PULSE 81; RESP 16; O2SAT 98
== END 2019-02-11 22:51 | disposition home or self-care (01) ==
PROVIDERS: Emergency Provider Emergency Medicine
DX: R10.11 Right upper quadrant pain (principal); R11.2 Nausea with vomiting, unspecified; R19.7 Diarrhea, unspecified; Z72.0 Tobacco use
CPT/HCPCS: 80053; 81001; 81025; 83690; 85025; 99284

== ENCOUNTER 2019-02-16 02:24 | Inpatient (IN) | payer MEDICAID, SELFPAY ==
[2019-02-16] VITALS (12 sets, daily range): BP systolic 94–121; BP diastolic 52–77; PULSE 46–119; RESP 14–16; TEMP 36.4–37; O2SAT 97–100; BMI 31.1; BMI 31.8; BMI 31.9; BMI 31.7
--- NOTE | 2019-02-16 02:51 | EKG12_ITS ---
Test Reason : RHYTHM CHANGE Blood Pressure : / mmHG Vent. Rate : 045 BPM Atrial Rate : 045 BPM P-R Int : 114 ms QRS Dur : 074 ms QT Int : 420 ms P-R-T Axes : 008 068 042 degrees QTc Int : 363 ms Sinus bradycardia Otherwise normal ECG When compared with ECG of 16-FEB-2019 02:30, MANUAL COMPARISON REQUIRED, DATA IS UNCONFIRMED Confirmed by JONY MORELOS, SANTOS ([id number]), managing editor BONNIE WYATT ([id number]) on 02/19/2019 8:14:52 AM Referred By: LETTY Confirmed By:SANTOS BORGES MD
--- NOTE | 2019-02-16 02:51 | RAD_ITS ---
STUDY: X-RAY CHEST REASON FOR EXAM: Female, 23 years old. Chest pain TECHNIQUE: PA and lateral views of the chest COMPARISON: 02/06/2019 FINDINGS: The lungs are clear and expanded. There is no demonstrated pleural abnormality. Normal size heart. Normal mediastinum and olayinka. Normal visualized pulmonary arteries. Normal visualized aortic arch and descending thoracic aorta. Normal visualized thoracic spine. Normal visualized ribs, clavicles, and shoulders. There is no demonstrated abnormality of the visualized soft tissue structures of the upper abdomen. RAD/Chest PA and Lateral IMPRESSION: Normal x-ray examination of the chest. Electronically Signed: Saurabh Devries MD at 4:06 EDT Tel , Service support ,
[2019-02-16 03:00] LABS: Absolute Lymphocyte Count 2.95 X10^3/ul (0.83-4.51); Absolute Neutrophil Count 4.4 X10^3/uL (2.0-7.7); Basophil# 0.04 X10^3/uL; Basophil% 0.5 % (0-1); Eosinophil# 0.15 X10^3/uL; Eosinophils% 1.8 % (0-5); Hematocrit 39.1 % (37-47); Hemoglobin 13.2 g/dl (12.0-15.0); Lymphocyte # 2.95 X10^3/ul (4.0); Lymphocyte % 36.3 % (19-41); Mean Corp Hgb Conc 33.8 g/gl (32-36); Mean Corpuscular Hgb 27.9 pg (27.0-32.0); Mean Corpuscular Volume 82.7 fL (81-99); Mean Platelet Vol. 10.9 fl (6.2-12.0); Monocyte# 0.53 X10^3/uL; Monocyte% 6.5 % (0-10); Neutrophil # 4.44 X10^3/uL (2.7-7.7); Neutrophil % 54.8 % (47-70); Platelet Count 269 K/mm3 (150-450); RBC Distribution Width CV 13.1 % (11.6-14.6); RBC Distribution Width SD 39.2 fl (35.1-43.9); Red Blood Count 4.73 M/mm3 (4.2-5.4); White Blood Count 8.1 K/mm3 (4.4-11.0)
[2019-02-16 03:01] LABS: POSITIVE COUNT NO; POSITIVE DIFFERENTIAL NO; POSITIVE MORPHOLOGY NO
[2019-02-16 03:13] LABS: D-Dimer Quantitative (DVT/PE) 0.59 FEU/ug/m (0.27-0.49)
[2019-02-16 03:14] LABS: ALB/GLOB Ratio 0.9 RATIO (0.9-2.4); AST(SGOT) 534 U/L (15-37); Alanine Aminotransfer ALT/SGPT 593 U/L (13-56); Albumin, Serum 3.6 g/dL (3.2-5.0); Alkaline Phosphatase 223 U/L (45-117); Anion Gap 10 (5-15); BUN 15 mg/dL (7-18); Calcium,Total 8.9 mg/dL (8.5-10.1); Chloride 104 mmol/L (98-107); EST Glomerular Filtration Rate 72 mL/min (>60); Est Glom Filt Rate - Afr Amer 88 mL/min (>60); Estimated Creatinine Clearance 74.91 ml/min; Glucose 121 mg/dL (74-106); Lipase 92 U/L (73-393); Potassium 3.3 mmol/L (3.5-5.1); Protein, Total 7.6 g/dL (6.4-8.2); Sodium Level 141 mmol/L (136-145)
[2019-02-16] MEDS: 0.9% Normal Saline 1,000 ML 1000 ML IV (03:18)
[2019-02-16] MEDS: Ondansetron 4 MG/2 ML Vial IV ×3 (03:19→16:22)
[2019-02-16] MEDS: Ketorolac 15 MG/ML Vial IV ×2 (03:19→14:49)
--- NOTE | 2019-02-16 03:19 | CT_ITS ---
STUDY: CT ABDOMEN AND PELVIS WITHOUT CONTRAST REASON FOR EXAM: Female, 23 years old. Abdominal pain for 3 weeks. RADIATION DOSAGE (If Supplied By Facility): CTDIvol = ( 30.2 ) mGy, DLP = ( 859.95 ) mGycm TECHNIQUE: Transaxial images were obtained from the dome of the diaphragm to the symphysis pubis without oral contrast, and without intravenous contrast. Sagittal and coronal images were reconstructed. Individualized dose optimization techniques were used for this CT. COMPARISON: None. FINDINGS: The visualized lung bases are unremarkable. The visualized portions of the heart are within normal limits. There is mild dilatation of intrahepatic biliary ducts. There is no evidence for hepatic mass. There appears to be some biliary sludge. The gallbladder is very distended measuring up to 9.9 cm in greatest dimension. There is dilated extrahepatic biliary duct which measures up to 5.8 mm in greatest dimension. Normal spleen. Normal pancreas. Normal bilateral adrenal glands. Normal right kidney. Normal left kidney. Normal visualized stomach. There is no evidence for dilated bowel, ascites or pneumoperitoneum. Small bowel has a grossly normal appearance. There is mild thickening of the urias of ascending colon possibly related to previous chronic inflammation. Stool is visible throughout most of the colon with scattered diverticula. There is non-visualization of the appendix. Normal abdominal aorta. Normal inferior vena cava. Normal retroperitoneum. Normal urinary bladder. Normal visualized uterus. Normal abdominal wall. Normal osseous structures. CT/Abdomen/Pelvis W IV Cont ONLY IMPRESSION: Dilated intrahepatic and extra hepatic bile ducts with what appears to be biliary sludge. Electronically Signed: Liset Garner MD at 4:54 EDT , Service support ,
[2019-02-16 03:48] LABS: Internal QC Validated? YES +Cl - CLEAR BKGD; Pregnancy, Serum, hCG Quali. NEGATIVE Negative
--- NOTE | 2019-02-16 04:03 | ED.RN ---
DR. BENNETT AWARE OF D-DIMER 0.59
--- NOTE | 2019-02-16 05:36 | ED.VISSUMM ---
- ER Visit Summary Date of Service: 02/16/19 Chief Complaint: Everything hurts History of Present Illness: The patient is a 23 F who complains of diffuse pain. She also complains of nausea vomiting and diarrhea for about 2 to 3 weeks. Her last episode of diarrhea was a couple of days ago. She also complains of lower chest pain. She complains of pain in her back between her shoulder blades. No fevers. She has had some mild cough as well. No history of prior similar symptoms. She denies medical history. As far surgical history she reports tubal ligation and . Physical Examination: Afebrile vitals unremarkable Moist mucous membranes Heart regular rate and rhythm Lungs are clear Abdomen soft she has epigastric tenderness without guarding without rebound her abdomen is nondistended Alert Test Results: Labs are notable for potassium of 3.3. Alkaline phosphatase is 223 with an ALT of 593 AST 534. Lipase is normal. Bilirubin is normal. Troponin is negative. D-dimer 0.59. negative. EKG shows sinus rhythm at a rate of 70. Chest x-ray normal. CT the abdomen and pelvis shows a distended gallbladder and dilated intrahepatic and extrahepatic biliary ducts and biliary sludge. Emergency Department Course and Treatment: Patient's initial differential is quite broad given her complaints of back pain, chest pain, shortness of breath, abdominal pain vomiting diarrhea. Consideration was given to intra-abdominal pathology as well as thoracic pathology including pulmonary embolism. D-dimer is elevated however with the rest of her labs and elevated LFTs I believe is clear that this is due to intra-abdominal pathology so pulmonary embolism was not pursued any further. The pattern of her LFTs is more suggestive of hepatocellular injury than obstruction. Given her recent vomiting and diarrhea consideration is given to viral hepatitis such as hepatitis A. I have sent an acute hepatitis panel. However imaging is more consistent with obstructive process although bilirubin is normal. I spoke to the hospitalist who also requested a surgical consult. I spoke to Dr. Farrell who recommended that the patient have an MRCP and can see the patient in consult. Patient will be admitted under the hospitalist service for further evaluation. Treatment Plan: [] Disposition: Admit Impression: Abnormal LFTs Abdominal pain Biliary dilatation This note was generated with [employer] dictation software. It may contain incorrect words, spelling, and punctuation that were not noted in review of the chart prior to signing ED Disposition - Plan for ED Patient: Referrals: Care Physician,No Primary [Primary Care Provider] -
--- NOTE | 2019-02-16 06:16 | PCM.HP.STD ---
Problem List (1) Intractable abdominal pain Status: Acute History of Present Illness Date of Admission: 02/16/19 Chief Complaint: abdominal pain The patient is a 23 year old F with no previous medical history except surgical history of tubal ligation and who presented to the emergency department with abdominal pain that started on February 06 2019 and has progressively been getting worse. Associated with her symptoms is a chest pain and pain between her shoulder blades. Her symptom has been progressively getting worse. She returned to the emergency department on February 11, 2019. This is her third visit to the emergency department.. Per patient on the last visit emergency department her liver enzymes was unremarkable. Further she has nausea and vomiting. She had diarrhea but her diarrhea resolved about 3 days ago. At emergency department her d-dimer was elevated; her liver enzymes was elevated and her abdominal CT and pelvis showed probable biliary sludge. Reportedly emergency department doctor discussed the case with general surgeon, Dr. Farrell and she suggested MRCP. Per emergency department doctor Dr. Farrell will follow the patient if consulted. Past Medical History Medical History: Medical History (Last Updated 02/16/19 @ 06:40 by Kaiser Lim MD) Denies any previous medical history Allergies aspirin [ASA] Allergy (Verified 02/16/19 02:27) Swelling codeine Allergy (Verified 02/16/19 02:27) Nausea Doesn't make her feel better latex Allergy (Verified 02/16/19 02:27) Rash Home Medications: Ambulatory Orders Medication Instructions Recorded Dicyclomine HCl [Bentyl] 20 mg PO TIDAC #20 cap 02/11/19 Surgical History: - - ; tubal ligation Psychiatric History: No pertinent psych hx Lives: With Family Smoking Status: Current every day smoker Tobacco Use: Cigarettes Alcohol: None - *Family History Maternal History Items: Diabetes, Heart Disease, - - Gallbladder disease Paternal History Items: Heart Disease Review of Systems Constitutional: Denies: Chills, Fever, Weight Change HEENT: Denies: Head Aches, Sinus Congestion, Sinus Drainage Cardiovascular: Denies: Chest Pain, Palpitations Respiratory: Denies: Cough, Shortness of breath at rest, Sputum production Gastrointestinal: Denies: Abdominal Pain, Nausea, Vomiting Genitourinary: Denies: Dysuria Musculoskeletal: Denies: Joint Pain, Joint Tenderness Skin: Denies: Rash, Wounds Neurological: Denies: Numbness, Tingling, Focal weakness Psychiatric: Denies: Anxiety, Depression, Homicidal Ideations, Suicidal Ideations Hematologic/ Lymphatic: Denies: Easy Bruising, Easy Bleeding VTE Information - Inpt Only VTE Present on Admission: No VTE Mechan Device Prophylaxis: None VTE Pharm Prophylaxis ordered?: No Reason prophylaxis not ordered:: Treatment Not Indicated - Low risk Patient Problems: Active and Suspected Problems Intractable abdominal pain (Acute) - Physical Exam General: Alert, Oriented x3, Cooperative HEENT: Atraumatic, PERRLA, EOMI, Normocephalic Neck: Supple, No JVD, Negative Carotid Bruits Lungs: Clear to auscultation, Normal air movement Cardiovascular: No murmurs, Bradycardic Abdomen: Bowel Sounds Present, Soft, Non Tender Extremities: No edema, Capillary Refill Less than 3 Seconds Skin: No rashes, No breakdown Musculoskeletal: No Tenderness to Palpation of Joints or Extremities Neurological: Neuro grossly intact Psych/Mental Status: Normal Affect, Appropriate Vital Signs Temp Pulse Resp BP Pulse Ox 97.5 F L 49 L 14 121/77 H 98 02/16/19 02:28 02/16/19 05:51 02/16/19 05:51 02/16/19 05:51 02/16/19 05:51 Oxygen Delivery Method Room Air Weight: 82.3 kg Body Mass Index (BMI) 31.1 Laboratory Tests Past 24 Hrs 02/16/19 02/16/19 02/16/19 02:46 02:46 02:46 WBC 8.1 RBC 4.73 Hgb 13.2 Hct 39.1 MCV 82.7 MCH 27.9 MCHC 33.8 RDW 13.1 RDW Differential 39.2 Plt Count 269 MPV 10.9 Immature Gran % (Auto) 0.100 Neut % (Auto) 54.8 Lymph % (Auto) 36.3 [place] % (Auto) 6.5 Eos % (Auto) 1.8 Baso % (Auto) 0.5 Absolute Neuts (auto) 4.4 Absolute Lymphs (auto) 2.95 Total Counted Not Reportable D-Dimer Quant (PE/DVT) Sodium 141 Potassium 3.3 L Chloride 104 Carbon Dioxide 27.0 Anion Gap 10 BUN 15 Creatinine 1.00 Estim Creat Clear Calc 74.91 Est GFR (MDRD) Af Amer 88 Est GFR (MDRD) Non-Af 72 BUN/Creatinine Ratio 15.0 Glucose 121 H Calcium 8.9 Total Bilirubin 1.00 AST 534 H ALT 593 H Alkaline Phosphatase 223 H Troponin I < 0.015 Total Protein 7.6 Albumin 3.6 Globulin 4.0 Albumin/Globulin Ratio 0.9 Lipase 92 Serum , Qual NEGATIVE Hepatitis A IgM Ab Hep Bs Antigen Hep B Core IgM Ab Hepatitis C Ab (EIA) 02/16/19 02/16/19 02:57 05:45 WBC RBC Hgb Hct MCV MCH MCHC RDW RDW Differential Plt Count MPV Immature Gran % (Auto) Neut % (Auto) Lymph % (Auto) [place] % (Auto) Eos % (Auto) Baso % (Auto) Absolute Neuts (auto) Absolute Lymphs (auto) Total Counted D-Dimer Quant (PE/DVT) 0.59 H* Sodium Potassium Chloride Carbon Dioxide Anion Gap BUN Creatinine Estim Creat Clear Calc Est GFR (MDRD) Af Amer Est GFR (MDRD) Non-Af BUN/Creatinine Ratio Glucose Calcium Total Bilirubin AST ALT Alkaline Phosphatase Troponin I Total Protein Albumin Globulin Albumin/Globulin Ratio Lipase Serum , Qual Hepatitis A IgM Ab Pending Hep Bs Antigen Pending Hep B Core IgM Ab Pending Hepatitis C Ab (EIA) Pending Assessment/Plan All Active Problems 39 weeks gestation of (Acute) Breech delivery (Acute) delivery delivered (Acute) Intractable abdominal pain (Acute) The patient is a 23 year old F with no previous medical history except surgical history of tubal ligation and who presented to the emergency department with abdominal pain that started on February 06 2019 and has progressively been getting worse; and also with chest pain; and pain between her shoulder blades; as well as abnormal liver enzymes; abnormal d-dimer and radiographic evidence of probable biliary sludge consistent with liver or gallbladder disease. Intractable abdominal pain Review of emergency department labs showed abnormal liver enzymes. CT of abdomen and pelvis showed probable biliary sludge. CT was independently reviewed. I agree with radiologist interpretation. Although patient has no fever will cover her with Zosyn for biliary and gallbladder infections. Supportive treatment with lactated Ringer's with potassium; antiemetics and PRN Toradol. Discussed emergency department doctor to get hepatitis panel Shared decision with patient to start patient on clear liquid. We will order MRCP. General surgery, Dr. Farrell consulted. Tobacco abuse Reportedly she smoked less than half pack of tobacco per day Counseled Bradycardia Patient noted to have bradycardia with heart rate in late 40s to early 50s. We will admit patient with message on telemetry and obtain serial cardiac enzymes. DVT prophylaxis Low risk Encouraged to ambulate. Code Visit Inpatient E&M: 14746 Init Hosp L3
--- NOTE | 2019-02-16 06:30 | NURSING ---
315 DR FARR INTRACTABLE ABD PAIN
--- NOTE | 2019-02-16 07:19 | MRI_ITS ---
STUDY: MR CHOLANGIOPANCREATOGRAPHY (MRCP) REASON FOR EXAM: Female, 23 years old. TECHNIQUE: Standard MRCP technique was utilized. COMPARISON: CT dated 02/16/2019 FINDINGS: This study is limited by patient motion. Gall Bladder: There are gallstones and sludge noted in the gallbladder. The gallbladder is distended. Cystic duct: Normal with no demonstrated fixed filling defect. Intrahepatic ducts: There is mild intrahepatic biliary duct dilatation. Common hepatic duct: Normal with no demonstrated fixed filling defect, dilation or stricture. Common bile duct: The common bile duct is mildly dilated, measuring 7 mm. There is a 2 mm filling defect in the mid to distal common bile duct which is consistent with choledocholithiasis (best seen on image 19 series 11). Pancreatic duct: Normal with no demonstrated fixed filling defect, dilation or stricture. MRI/MRCP Abdomen without Contrast IMPRESSION: The study is limited by patient motion. Distended gallbladder with gallstones and sludge. Mild intrahepatic biliary duct dilatation. 2 mm filling defect in the mid to distal common bile duct, consistent with choledocholithiasis. Mildly dilated common bile duct, measuring 7 mm. Electronically Signed: Edvin Lamb, at 11:35 EDT Tel , Service support ,
[2019-02-16 07:58] LABS: International Normalized Ratio 1.1; Prothrombin Time (Protime)PT. 13.9 SECONDS (11.7-14.9)
[2019-02-16 08:09] LABS: Magnesium 2.1 mg/dL (1.6-2.6)
[2019-02-16] MEDS: 0.9% NaCl Peripheral Flush Adult/Peds IV ×3 (08:20→14:54)
--- NOTE | 2019-02-16 10:46 | PCM.CONS.B ---
- Consult Date of Consult: 02/16/19 - Reason for Consult Chief Complaint: abdominal pain History of Present Illness: 23 y/o WF notes sudden onset of epigastric and substernal chest pain that radiates to back between shoulder blades. Began 3 weeks ago. Described as sharp and stabbing with occasional burning. It is intermittent. With nausea and emesis, can't keep anything down. Denies fevers. Denies acid indigestion or heartburn, denies history of PUD. Grandmother had gallbladder disease. She has a normal WBC with no left shift of differential. She has elevated LFTs - AST/ALT and alk phos, but tbili is normal. Abdominal CT scan revealed mild dilatation of the intrahepatic biliary ducts, gallbladder is distended with sludge and dilated extrahepatic biliary duct is 5.8mm She is admitted for intractable abdominal pain. Past Medical History: denies major medical illnesses Past Surgical History: csection - Dr. Martinez tubes tied Medications: denies taking chronic medications Allergies: aspirin, codeine, latex Social history: TOB use yes Denies illicit drug use Review of Systems: General - has no appetite, denies fevers, denies weight loss Cardiovascular denies chest pain, denies history of heart attack, denies heart problems Pulmonary denies shortness of breath, denies coughing up blood Gastrointestinal as per HPI, denies blood in stools, denies fecal incontinence denies acid indigestion/heartburn, denies history of peptic ulcers Neurological denies numbness/weakness of extremities, denies seizures, denies history of stroke Genitourinary denies burning with urination, denies blood in urine Hematological denies spontaneous/prolonged bleeding, denies history of blood transfusions, denies history of DVT/PE Skin denies open non healing wounds Musculoskeletal denies history of fractures, denies arthritis Endocrine denies diabetes or thyroid problems Psychological denies suicidal ideation, denies hallucinations Physical examination: Vital signs Temp 97.8F HR 49 BP 121/77 RR 14 General WD/WN WF in no apparent distress, alert and oriented, not septic appearing HEENT Normocephalic. EOM intact with sclera clear and no icterus noted. Neck is supple with no jugular venous distention noted. Trachea is midline. Lungs breath sounds. No rales/rhonchi/wheezing noted. No labored breathing noted, such as retractions. No cough heard. Heart normal S1 and S2 auscultated. No rubs/clicks/murmurs noted. Normal size and location by auscultation. Abdomen patient states no abdominal pain at present, soft and benign. Normal bowel sounds No abdominal bruits noted. Extremities no calf tenderness noted. No pitting edema noted. Genitourinary/Rectal deferred Skin no rashes noted. Normal skin integrity. Neurological cranial nerves II-XII intact. Normal motor strength in arms and legs. No localized numbness detected. Psychological normal affect, patient is calm and appropriate Impression: intractable abdominal pain elevated LFTs abnormal biliary tree on CT scan Plan/discussion: I have discussed the above with the patient. I suspect CBD stones are present. Will obtain MRCP If positive, then will proceed to ERCP. I have also discussed gallbladder surgery. I have answered all questions to the patient?s satisfaction and the patient has no further questions.
--- NOTE | 2019-02-16 11:17 | PCA ---
pt off floor
--- NOTE | 2019-02-16 12:43 | CASEMGMT ---
According to [facility] website, the following are in-network tertiary facilities: [facility], [facility], [facility], [facility], [facility], [facility], and . Solomon PETE CM
--- NOTE | 2019-02-16 13:28 | PCM.PROGNOTE ---
<Nicole Mayorga - Last Filed: 02/16/19 13:34> Patient Problems: Active and Suspected Problems (Last Updated 02/16/19 @ 06:40 by Kaiser Lim MD) Choledocholithiasis (Acute) Subjective: Patient seen and examined. Tearful, states she misses her children. Agreeable to proceed with ERCP tomorrow followed by laparoscopic cholecystectomy on Monday. Denies significant pain. Complains of mild nausea, denies emesis. - Physical Exam General: Alert, Oriented x3, Cooperative HEENT: Atraumatic, PERRLA, EOMI, Normocephalic Neck: Supple, No JVD, Negative Carotid Bruits Lungs: Clear to auscultation, Normal air movement Cardiovascular: Regular rate, Regular Rhythm, Normal S1, Normal S2, No murmurs Abdomen: Bowel Sounds Present, Soft, Non-Distended, Tender Extremities: No clubbing, No cyanosis, No edema, Capillary Refill Less than 3 Seconds Skin: No rashes, No breakdown Musculoskeletal: No Tenderness to Palpation of Joints or Extremities Neurological: Cranial nerves II-XII grossly intact, Neuro grossly intact Psych/Mental Status: Anxious, - - Tearful. Vital Signs Temp Pulse Resp BP Pulse Ox 97.8 F 61 16 102/52 L 100 02/16/19 07:32 02/16/19 07:58 02/16/19 07:32 02/16/19 07:32 02/16/19 07:32 Oxygen Delivery Method Room Air Weight: 185 lb 13.595 oz Body Mass Index (BMI) 31.8 Laboratory Tests Past 24 Hrs 02/16/19 02/16/19 02/16/19 02:46 02:46 02:46 WBC 8.1 RBC 4.73 Hgb 13.2 Hct 39.1 MCV 82.7 MCH 27.9 MCHC 33.8 RDW 13.1 RDW Differential 39.2 Plt Count 269 MPV 10.9 Immature Gran % (Auto) 0.100 Neut % (Auto) 54.8 Lymph % (Auto) 36.3 [place] % (Auto) 6.5 Eos % (Auto) 1.8 Baso % (Auto) 0.5 Absolute Neuts (auto) 4.4 Absolute Lymphs (auto) 2.95 Total Counted Not Reportable PT INR D-Dimer Quant (PE/DVT) Sodium 141 Potassium 3.3 L Chloride 104 Carbon Dioxide 27.0 Anion Gap 10 BUN 15 Creatinine 1.00 Estim Creat Clear Calc 74.91 Est GFR (MDRD) Af Amer 88 Est GFR (MDRD) Non-Af 72 BUN/Creatinine Ratio 15.0 Glucose 121 H Calcium 8.9 Magnesium Total Bilirubin 1.00 AST 534 H ALT 593 H Alkaline Phosphatase 223 H Troponin I < 0.015 Total Protein 7.6 Albumin 3.6 Globulin 4.0 Albumin/Globulin Ratio 0.9 Lipase 92 Serum , Qual NEGATIVE Hepatitis A IgM Ab Hep Bs Antigen Hep B Core IgM Ab Hepatitis C Ab (EIA) 02/16/19 02/16/19 02/16/19 02:57 05:45 07:40 WBC RBC Hgb Hct MCV MCH MCHC RDW RDW Differential Plt Count MPV Immature Gran % (Auto) Neut % (Auto) Lymph % (Auto) [place] % (Auto) Eos % (Auto) Baso % (Auto) Absolute Neuts (auto) Absolute Lymphs (auto) Total Counted PT INR D-Dimer Quant (PE/DVT) 0.59 H* Sodium Potassium Chloride Carbon Dioxide Anion Gap BUN Creatinine Estim Creat Clear Calc Est GFR (MDRD) Af Amer Est GFR (MDRD) Non-Af BUN/Creatinine Ratio Glucose Calcium Magnesium 2.1 Total Bilirubin AST ALT Alkaline Phosphatase Troponin I < 0.015 Total Protein Albumin Globulin Albumin/Globulin Ratio Lipase Serum , Qual Hepatitis A IgM Ab Pending Hep Bs Antigen Pending Hep B Core IgM Ab Pending Hepatitis C Ab (EIA) Pending 02/16/19 02/16/19 07:40 10:05 WBC RBC Hgb Hct MCV MCH MCHC RDW RDW Differential Plt Count MPV Immature Gran % (Auto) Neut % (Auto) Lymph % (Auto) [place] % (Auto) Eos % (Auto) Baso % (Auto) Absolute Neuts (auto) Absolute Lymphs (auto) Total Counted PT 13.9 INR 1.1 D-Dimer Quant (PE/DVT) Sodium Potassium Chloride Carbon Dioxide Anion Gap BUN Creatinine Estim Creat Clear Calc Est GFR (MDRD) Af Amer Est GFR (MDRD) Non-Af BUN/Creatinine Ratio Glucose Calcium Magnesium Total Bilirubin AST ALT Alkaline Phosphatase Troponin I < 0.015 Total Protein Albumin Globulin Albumin/Globulin Ratio Lipase Serum , Qual Hepatitis A IgM Ab Hep Bs Antigen Hep B Core IgM Ab Hepatitis C Ab (EIA) Medical Necessity - Tobacco Use Smoking Status: Current every day smoker Tobacco Use: Cigarettes Assessment/Plan All Active Problems (Last Updated 02/16/19 @ 06:40 by Kaiser Lim MD) Choledocholithiasis (Acute) 1. Intractable abdominal pain secondary to acute choledocholithiasis-CT of abdomen and pelvis on admission shows dilated intrahepatic and extrahepatic bile ducts with what appears to be biliary sludge. MRCP shows distended gallbladder with gallstones and sludge. Mild intrahepatic biliary duct dilatation. 2 mm filling defect in the mid to distal common bile duct consistent with choledocholithiasis. Dr. Farrell, general surgery on consult. Plan for ERCP tomorrow and laparoscopic cholecystectomy on Monday. Clear liquid diet. PRN pain regimen. PRN antiemetics. IV Zosyn. 2. Elevated LFTs-secondary to #1. 3. Tobacco dependence-encouraged smoking cessation. DVT prophylaxis-low risk, not indicated. This patient was seen by GUANAKO Mota under the supervision of Dr. Erwin. <Francisco Erwin E - Last Filed: 02/16/19 14:57> - Physical Exam Vital Signs Temp Pulse Resp BP Pulse Ox 97.8 F 61 16 102/52 L 100 02/16/19 07:32 02/16/19 07:58 02/16/19 07:32 02/16/19 07:32 02/16/19 07:32 Oxygen Delivery Method Room Air Weight: 185 lb 13.595 oz Body Mass Index (BMI) 31.8 Intake and Output for Last 24 Hours 02/14/19 02/15/19 02/16/19 23:59 23:59 23:59 Intake Total 348 / 348 Balance 348 / 348 Laboratory Tests Past 24 Hrs 02/16/19 02/16/19 02/16/19 02:46 02:46 02:46 WBC 8.1 RBC 4.73 Hgb 13.2 Hct 39.1 MCV 82.7 MCH 27.9 MCHC 33.8 RDW 13.1 RDW Differential 39.2 Plt Count 269 MPV 10.9 Immature Gran % (Auto) 0.100 Neut % (Auto) 54.8 Lymph % (Auto) 36.3 [place] % (Auto) 6.5 Eos % (Auto) 1.8 Baso % (Auto) 0.5 Absolute Neuts (auto) 4.4 Absolute Lymphs (auto) 2.95 Total Counted Not Reportable PT INR D-Dimer Quant (PE/DVT) Sodium 141 Potassium 3.3 L Chloride 104 Carbon Dioxide 27.0 Anion Gap 10 BUN 15 Creatinine 1.00 Estim Creat Clear Calc 74.91 Est GFR (MDRD) Af Amer 88 Est GFR (MDRD) Non-Af 72 BUN/Creatinine Ratio 15.0 Glucose 121 H Calcium 8.9 Magnesium Total Bilirubin 1.00 AST 534 H ALT 593 H Alkaline Phosphatase 223 H Troponin I < 0.015 Total Protein 7.6 Albumin 3.6 Globulin 4.0 Albumin/Globulin Ratio 0.9 Lipase 92 Serum , Qual NEGATIVE Hepatitis A IgM Ab Hep Bs Antigen Hep B Core IgM Ab Hepatitis C Ab (EIA) 02/16/19 02/16/19 02/16/19 02:57 05:45 07:40 WBC RBC Hgb Hct MCV MCH MCHC RDW RDW Differential Plt Count MPV Immature Gran % (Auto) Neut % (Auto) Lymph % (Auto) [place] % (Auto) Eos % (Auto) Baso % (Auto) Absolute Neuts (auto) Absolute Lymphs (auto) Total Counted PT INR D-Dimer Quant (PE/DVT) 0.59 H* Sodium Potassium Chloride Carbon Dioxide Anion Gap BUN Creatinine Estim Creat Clear Calc Est GFR (MDRD) Af Amer Est GFR (MDRD) Non-Af BUN/Creatinine Ratio Glucose Calcium Magnesium 2.1 Total Bilirubin AST ALT Alkaline Phosphatase Troponin I < 0.015 Total Protein Albumin Globulin Albumin/Globulin Ratio Lipase Serum , Qual Hepatitis A IgM Ab Pending Hep Bs Antigen Pending Hep B Core IgM Ab Pending Hepatitis C Ab (EIA) Pending 02/16/19 02/16/19 02/16/19 07:40 10:05 13:45 WBC RBC Hgb Hct MCV MCH MCHC RDW RDW Differential Plt Count MPV Immature Gran % (Auto) Neut % (Auto) Lymph % (Auto) [place] % (Auto) Eos % (Auto) Baso % (Auto) Absolute Neuts (auto) Absolute Lymphs (auto) Total Counted PT 13.9 INR 1.1 D-Dimer Quant (PE/DVT) Sodium Potassium Chloride Carbon Dioxide Anion Gap BUN Creatinine Estim Creat Clear Calc Est GFR (MDRD) Af Amer Est GFR (MDRD) Non-Af BUN/Creatinine Ratio Glucose Calcium Magnesium Total Bilirubin AST ALT Alkaline Phosphatase Troponin I < 0.015 < 0.015 Total Protein Albumin Globulin Albumin/Globulin Ratio Lipase Serum , Qual Hepatitis A IgM Ab Hep Bs Antigen Hep B Core IgM Ab Hepatitis C Ab (EIA) Assessment/Plan Hospitalist note: Progress note above reviewed and I concur with the above treatment plan. Patient was admitted for abdominal pain with nausea and vomiting. She was found to have choledocholithiasis on MRCP with dilatation of intrahepatic and extrahepatic biliary ducts. Lipase was normal. MRCP revealed also distended gallbladder with gallstones probably due to acute cholecystitis. Her vital signs are stable. She does have epigastric and right upper quadrant tenderness on examination, otherwise exam is unremarkable. She is on IV fluids, IV Zosyn and IV medications. General surgery consulted, plan for ERCP tomorrow and then laparoscopic cholecystectomy on Monday.
--- NOTE | 2019-02-16 13:47 | CASEMGMT ---
YANCI OLIVO assessment: Face to Face with patient for initial transition planning/care coordination assessment. YANCI OLIVO introduced self and role at [facility], pt voices understanding and consents to assessment at this time. Pt is sitting up in bed in no distress at this time. Pt is A/Ox4 at this time and answers all questions approrpriately at this time. Care providers, pharmacy, and demographics verified at this time. PCP: Pt states does not currently have PCP and declines list at this time. Specialists: None currently Preferred [facility]acy: [facility] Insurance: [facility] Comm plan Prescription Benefit: [facility] Comm plan Living Will/HPOA: Pt states does not have LW/HPOA and declines info at this time. LNOK: Triny Otero, Living Arrangements: Pt states lives with mother in apt and states no concerns at home at this time. Pt is independent with ADL's. Transportation: Pt states drives self and states no transportation concerns at this time. DME/HHC: Pt states no current DME or need for any at this time. Pt states no hx of HHC or SNF in the past. Pt states no concerns with going home at time of discharge. Pt states is currently unemployed. Pt states smokes 1/4 pk/day and does not drink ETOH. Pt states no further questions/concerns/needs at this time. CM to follow for any further discharge planning/needs. Advised pt to ask for CM if any further questions/concerns/needs arise, voices understanding. Pt Goal: Home Plan: [place] YANCI OLIVO
[2019-02-16] MEDS: Ensure Clear 120 ML Liquid PO ×3 (14:49→21:35)
--- NOTE | 2019-02-16 18:54 | EKG12_ITS ---
Test Reason : CHEST TIGHTNESS Blood Pressure : / mmHG Vent. Rate : 070 BPM Atrial Rate : 070 BPM P-R Int : 116 ms QRS Dur : 084 ms QT Int : 372 ms P-R-T Axes : 051 062 042 degrees QTc Int : 401 ms Normal sinus rhythm with sinus arrhythmia Normal ECG Confirmed by LATA PERLA ([id number]), editorial cartoonist BONNIE WYATT ([id number]) on 02/20/2019 2:02:15 PM Referred By: DOUG Confirmed By:LATA PERLA
[2019-02-17] VITALS (16 sets, daily range): BP systolic 90–109; BP diastolic 49–78; PULSE 41–70; RESP 14–18; TEMP 36.3–37; O2SAT 96–100
[2019-02-17] MEDS: Ondansetron 4 MG/2 ML Vial IV (05:24)
[2019-02-17 06:35] LABS: Absolute Neutrophil Count 2.9 X10^3/uL (2.0-7.7); Basophil# 0.02 X10^3/uL; Basophil% 0.3 % (0-1); Eosinophil# 0.13 X10^3/uL; Eosinophils% 2.2 % (0-5); Hematocrit 36.5 % (37-47); Hemoglobin 11.5 g/dl (12.0-15.0); Lymphocyte % 41.5 % (19-41); Mean Corp Hgb Conc 31.5 g/gl (32-36); Mean Corpuscular Volume 85.7 fL (81-99); Mean Platelet Vol. 11.4 fl (6.2-12.0); Monocyte# 0.42 X10^3/uL; Neutrophil # 2.94 X10^3/uL (2.7-7.7); Neutrophil % 48.8 % (47-70); Platelet Count 183 K/mm3 (150-450); RBC Distribution Width CV 13.3 % (11.6-14.6); RBC Distribution Width SD 40.9 fl (35.1-43.9); Red Blood Count 4.26 M/mm3 (4.2-5.4)
[2019-02-17 06:37] LABS: POSITIVE COUNT NO; POSITIVE DIFFERENTIAL NO; POSITIVE MORPHOLOGY NO
--- NOTE | 2019-02-17 06:40 | PN.SURG_ITS ---
Patient Problems: Active and Suspected Problems (Last Updated 02/16/19 @ 06:40 by Kaiser Lim MD) Choledocholithiasis (Acute) Subjective: Patient seems comfortable this morning. No nausea or vomiting. - Physical Exam General: Alert, Oriented x3 Neck: No JVD Lungs: Normal air movement Cardiovascular: Regular rate, Regular Rhythm Abdomen: Soft, Non-Distended, Tender - Mild epigastric tenderness Vital Signs Temp Pulse Resp BP Pulse Ox 97.7 F L 48 L 16 95/57 L 98 02/17/19 05:11 02/17/19 05:11 02/17/19 05:11 02/17/19 05:11 02/17/19 05:11 Oxygen Delivery Method Room Air Weight: 185 lb 13.595 oz Body Mass Index (BMI) 31.7 Intake and Output for Last 24 Hours 02/15/19 02/16/19 02/17/19 23:59 23:59 23:59 Intake Total 931 / 931 2031 Balance 931 / 931 2031 Laboratory Tests Past 24 Hrs 02/16/19 02/16/19 02/16/19 07:40 07:40 10:05 WBC RBC Hgb Hct MCV MCH MCHC RDW RDW Differential Plt Count MPV Immature Gran % (Auto) Neut % (Auto) Lymph % (Auto) [place] % (Auto) Eos % (Auto) Baso % (Auto) Absolute Neuts (auto) Absolute Lymphs (auto) Total Counted PT 13.9 INR 1.1 Sodium Potassium Chloride Carbon Dioxide Anion Gap BUN Creatinine Est GFR (MDRD) Af Amer Est GFR (MDRD) Non-Af BUN/Creatinine Ratio Glucose Calcium Magnesium 2.1 Total Bilirubin AST ALT Alkaline Phosphatase Troponin I < 0.015 < 0.015 Total Protein Albumin Lipase 02/16/19 02/17/19 02/17/19 13:45 06:00 06:00 WBC 6.0 RBC 4.26 Hgb 11.5 L Hct 36.5 L MCV 85.7 MCH 27.0 MCHC 31.5 L RDW 13.3 RDW Differential 40.9 Plt Count 183 MPV 11.4 Immature Gran % (Auto) 0.200 Neut % (Auto) 48.8 Lymph % (Auto) 41.5 H [place] % (Auto) 7.0 Eos % (Auto) 2.2 Baso % (Auto) 0.3 Absolute Neuts (auto) 2.9 Absolute Lymphs (auto) 2.50 Total Counted Not Reportable PT INR Sodium Pending Potassium Pending Chloride Pending Carbon Dioxide Pending Anion Gap Pending BUN Pending Creatinine Pending Est GFR (MDRD) Af Amer Pending Est GFR (MDRD) Non-Af Pending BUN/Creatinine Ratio Pending Glucose Pending Calcium Pending Magnesium Total Bilirubin Pending AST Pending ALT Pending Alkaline Phosphatase Pending Troponin I < 0.015 Total Protein Pending Albumin Pending Lipase Pending Medical Necessity - Tobacco Use Smoking Status: Current every day smoker Tobacco Use: Cigarettes Assessment/Plan All Active Problems (Last Updated 02/16/19 @ 06:40 by Kaiser Lim MD) Choledocholithiasis (Acute) 23-year-old female with choledocholithiasis 1. Patient complains of several weeks of epigastric pain. She had ultrasound which shows gallstones and a CT scan which showed dilated common bile duct. She subsequently had MRCP which showed choledocholithiasis. I was consulted for ERCP prior to laparoscopic cholecystectomy. LFTs are elevated. 2. I discussed ERCP in detail with the patient. I discussed the procedure and the possibility of having to place a stent. I discussed the risks including but not limited to bleeding, infection, perforation of the bile duct or bowels, pancreatitis. Patient understands the risks and is willing to proceed with surgery. Odilon Campos MD Pager: [facility] [address] [place] [address], [address] [place] [address] Office:
[2019-02-17 06:43] LABS: ALB/GLOB Ratio 0.8 RATIO (0.9-2.4); Albumin, Serum 2.9 g/dL (3.2-5.0); BUN 8 mg/dL (7-18); BUN/Creat Ratio 9.3 RATIO (10-20); Calcium,Total 8.6 mg/dL (8.5-10.1); Creatinine, Serum 0.86 mg/dL (0.55-1.02); EST Glomerular Filtration Rate 86 mL/min (>60); Est Glom Filt Rate - Afr Amer 104 mL/min (>60); Globulin 3.6 g/dL (2.2-4.2); Glucose 79 mg/dL (74-106); Protein, Total 6.5 g/dL (6.4-8.2)
[2019-02-17 06:44] LABS: AST(SGOT) 192 U/L (15-37); Alanine Aminotransfer ALT/SGPT 489 U/L (13-56); Alkaline Phosphatase 188 U/L (45-117); Anion Gap 8 (5-15); Chloride 111 mmol/L (98-107); Lipase 61 U/L (73-393); Potassium 4.4 mmol/L (3.5-5.1); Sodium Level 143 mmol/L (136-145)
--- NOTE | 2019-02-17 06:54 | NURSING ---
02/17 0641 [facility] [place] took patient down for ERCP procedure.
--- NOTE | 2019-02-17 07:00 | RAD_ITS ---
Multiple films are available for interpretation during ERCP. There is endoscope within the second portion of duodenum, a catheter is noted within the biliary system, contrast is outlining the intrahepatic as well as the extrahepatic biliary system with the common bile duct revealed no obvious filling defects to suggest CBD stone and no obvious obstruction identified. Mild distention of the CBD is due to pressure. The pancreatic duct is not visualized. The previously described filling defect within the CBD in the MRCP is not seen in this ERCP possibly was removed during the procedure before taking the images. Please refer to the supervisory clerk's note . RAD/ERCP Biliary Only IMPRESSION: No obvious filling defect seen within the CBD. Probably the stones noted in the MRCP where removed during the procedure. Electronically Signed: Katie Jones, at 9:42 EDT Tel , Service support ,
--- NOTE | 2019-02-17 07:34 | OP.ENDO_ITS ---
02/17/2019 No Primary Care Physician Re : ERCP procedure for Dorene Vázquez Dear Care Physician This procedure was performed on Sunday, February 17, 2019. My impressions and recommendations are as follows: Impressions : - The major papilla appeared normal. - Choledocholithiasis was found. Complete removal was accomplished by biliary sphincterotomy and balloon extraction. - A biliary sphincterotomy was performed. - The biliary tree was swept. Recommendations : - Clear liquid diet. - Return patient to [facility] for [facility] care. My findings are described in the full procedure note, which is enclosed. If I can be of further assistance, please feel free to contact me at Doctor phone number(s): , Work: . Sincerely, Odilon Campos MD 02/17/2019 7:33:35 AM This report has been signed electronically.
--- NOTE | 2019-02-17 07:41 | PCA ---
pt off floor
[2019-02-17] MEDS: Ensure Clear 120 ML Liquid PO ×2 (08:43→14:35)
[2019-02-17] MEDS: Ketorolac 15 MG/ML Vial IV (10:41)
--- NOTE | 2019-02-17 11:34 | PN_ITS ---
<Nicole Mayorga - Last Filed: 02/17/19 11:39> Patient Problems: Active and Suspected Problems (Last Updated 02/16/19 @ 06:40 by Kaiser Lim MD) Choledocholithiasis (Acute) Subjective: Patient seen and examined. Underwent ERCP this morning. Choledocholithiasis was found. Biliary sphincterotomy was performed. Patient resting comfortably in bed. Tolerating diet. Denies significant pain. Denies nausea, vomiting. Denies fever, chills. - Physical Exam General: Alert, Oriented x3, Cooperative HEENT: Atraumatic, PERRLA, EOMI, Normocephalic Neck: Supple, No JVD, Negative Carotid Bruits Lungs: Clear to auscultation, Normal air movement Cardiovascular: Regular rate, Regular Rhythm, Normal S1, Normal S2, No murmurs Abdomen: Bowel Sounds Present, Soft, Non-Distended, Tender Extremities: No clubbing, No cyanosis, No edema, Capillary Refill Less than 3 Seconds Skin: No rashes, No breakdown Musculoskeletal: No Tenderness to Palpation of Joints or Extremities Neurological: Cranial nerves II-XII grossly intact, Neuro grossly intact Psych/Mental Status: Flat Affect Vital Signs Temp Pulse Resp BP Pulse Ox 97.8 F 52 L 16 95/55 L 100 02/17/19 08:35 02/17/19 09:00 02/17/19 08:35 02/17/19 08:35 02/17/19 08:35 Oxygen Delivery Method Room Air Weight: 185 lb 13.595 oz Body Mass Index (BMI) 31.7 Intake and Output for Last 24 Hours 02/15/19 02/16/19 02/17/19 23:59 23:59 23:59 Intake Total 931 / 931 2632 / 2632 Output Total 400 / 400 Balance 931 / 931 2232 / 2232 Laboratory Tests Past 24 Hrs 02/16/19 02/17/19 02/17/19 13:45 06:00 06:00 WBC 6.0 RBC 4.26 Hgb 11.5 L Hct 36.5 L MCV 85.7 MCH 27.0 MCHC 31.5 L RDW 13.3 RDW Differential 40.9 Plt Count 183 MPV 11.4 Immature Gran % (Auto) 0.200 Neut % (Auto) 48.8 Lymph % (Auto) 41.5 H [place] % (Auto) 7.0 Eos % (Auto) 2.2 Baso % (Auto) 0.3 Absolute Neuts (auto) 2.9 Absolute Lymphs (auto) 2.50 Total Counted Not Reportable Sodium 143 Potassium 4.4 Chloride 111 H Carbon Dioxide 24.0 Anion Gap 8 BUN 8 Creatinine 0.86 Estim Creat Clear Calc 87.10 Est GFR (MDRD) Af Amer 104 Est GFR (MDRD) Non-Af 86 BUN/Creatinine Ratio 9.3 L Glucose 79 Calcium 8.6 Total Bilirubin 0.80 AST 192 H ALT 489 H Alkaline Phosphatase 188 H Troponin I < 0.015 Total Protein 6.5 Albumin 2.9 L Globulin 3.6 Albumin/Globulin Ratio 0.8 L Lipase 61 L Medical Necessity - Tobacco Use Smoking Status: Current every day smoker Tobacco Use: Cigarettes Assessment/Plan All Active Problems (Last Updated 02/16/19 @ 06:40 by Kaiser Lim MD) Choledocholithiasis (Acute) 1. Intractable abdominal pain secondary to acute choledocholithiasis-CT of abdomen and pelvis on admission shows dilated intrahepatic and extrahepatic bile ducts with what appears to be biliary sludge. MRCP shows distended gallbladder with gallstones and sludge. Mild intrahepatic biliary duct dilatation. 2 mm filling defect in the mid to distal common bile duct consistent with choledocholithiasis. Dr. Farrell/Dr. Campos, general surgery on consult. Patient underwent ERCP 02/17/2019 which showed choledocholithiasis. Bilateral sphincterotomy was performed and biliary tree was swept. Plan for laparoscopic cholecystectomy 02/18/2019. PRN pain regimen. PRN antiemetics. IV Zosyn. 2. Elevated LFTs-secondary to #1. Trending down. 3. Tobacco dependence-encouraged smoking cessation. DVT prophylaxis-low risk, not indicated. This patient was seen by GUANAKO Mota under the supervision of Dr. Erwin. <Francisco Erwin - Last Filed: 02/17/19 13:39> - Physical Exam Vital Signs Temp Pulse Resp BP Pulse Ox 97.8 F 58 L 18 107/64 100 02/17/19 10:41 02/17/19 10:41 02/17/19 10:41 02/17/19 10:41 02/17/19 10:41 Oxygen Delivery Method Room Air Weight: 185 lb 13.595 oz Body Mass Index (BMI) 31.7 Intake and Output for Last 24 Hours 02/15/19 02/16/19 02/17/19 23:59 23:59 23:59 Intake Total 931 / 931 3236 / 3236 Output Total 1400 / 1400 Balance 931 / 931 1836 / 1836 Laboratory Tests Past 24 Hrs 02/16/19 02/17/19 02/17/19 13:45 06:00 06:00 WBC 6.0 RBC 4.26 Hgb 11.5 L Hct 36.5 L MCV 85.7 MCH 27.0 MCHC 31.5 L RDW 13.3 RDW Differential 40.9 Plt Count 183 MPV 11.4 Immature Gran % (Auto) 0.200 Neut % (Auto) 48.8 Lymph % (Auto) 41.5 H [place] % (Auto) 7.0 Eos % (Auto) 2.2 Baso % (Auto) 0.3 Absolute Neuts (auto) 2.9 Absolute Lymphs (auto) 2.50 Total Counted Not Reportable Sodium 143 Potassium 4.4 Chloride 111 H Carbon Dioxide 24.0 Anion Gap 8 BUN 8 Creatinine 0.86 Estim Creat Clear Calc 87.10 Est GFR (MDRD) Af Amer 104 Est GFR (MDRD) Non-Af 86 BUN/Creatinine Ratio 9.3 L Glucose 79 Calcium 8.6 Total Bilirubin 0.80 AST 192 H ALT 489 H Alkaline Phosphatase 188 H Troponin I < 0.015 Total Protein 6.5 Albumin 2.9 L Globulin 3.6 Albumin/Globulin Ratio 0.8 L Lipase 61 L Assessment/Plan Hospitalist note: I am seeing this patient in conjunction with Nicole Mayorga. I independently seen and examined the patient. Progress note above, laboratory data and imaging studies reviewed and I concur with the above treatment plan patient was seen and examined after she went For ERCP. She complains of epigastric pain after she started eating. Denies nausea vomiting. Her vital signs are stable. - Physical Exam General: Alert, Oriented x3, Cooperative, No apparent distress. HEENT: Atraumatic, PERRLA, EOMI. Neck: Supple, No JVD, Negative Carotid Bruits, Trachea Midline, Thyroid Normal. Lungs: Clear to auscultation, Normal air movement, No rhonchi, No wheeze, No rales. Cardiovascular: Regular rate, Regular Rhythm, Normal S1, Normal S2, PMI Normal, bradycardia. Abdomen: Bowel Sounds Present, Soft, epigastric tenderness, Non-Distended, No Hepato-splenomegaly. No guarding or rigidity. Extremities: No clubbing, No cyanosis, No edema Skin: No rashes, No breakdown Neurological: Cranial nerves are intact, neuro grossly intact. Assessment and plan: #1 choledocholithiasis: Status post ERCP that was done today. Reportedly, stones from CBD was extracted. After ERCP, patient started complaining of epigastric pain, no nausea vomiting. 1 dose of GI cocktail ordered, started on IV Protonix drip. Plan to continue IV fluids, repeat CBC, CMP and lipase tomorrow morning. #2 probable acute cholecystitis: Plan for laparoscopic cholecystectomy tomorrow. General surgeon on the case. This note was generated with [employer] dictation software. It may contain incorrect words, spelling, and punctuation that were not noted in checking the note before signing. Code Visit Inpatient E&M: 64040 Subs Hosp L2
[2019-02-17] MEDS: Mag Hydrox/Al Hydrox/Simeth 30 ML UDC PO (11:57)
--- NOTE | 2019-02-17 11:58 | PCM.PN.SRG ---
Patient Problems: Active and Suspected Problems (Last Updated 02/16/19 @ 06:40 by Kaiser Lim MD) Choledocholithiasis (Acute) Subjective: Patient feeling improved, feels hungry - Physical Exam General: Alert, Oriented x3 Vital Signs Temp Pulse Resp BP Pulse Ox 97.8 F 58 L 18 107/64 100 02/17/19 10:41 02/17/19 10:41 02/17/19 10:41 02/17/19 10:41 02/17/19 10:41 Oxygen Delivery Method Room Air Weight: 84.3 kg Body Mass Index (BMI) 31.7 Intake and Output for Last 24 Hours 02/15/19 02/16/19 02/17/19 23:59 23:59 23:59 Intake Total 931 / 931 2632 / 2632 Output Total 400 / 400 Balance 931 / 931 2232 / 2232 Laboratory Tests Past 24 Hrs 02/16/19 02/17/19 02/17/19 13:45 06:00 06:00 WBC 6.0 RBC 4.26 Hgb 11.5 L Hct 36.5 L MCV 85.7 MCH 27.0 MCHC 31.5 L RDW 13.3 RDW Differential 40.9 Plt Count 183 MPV 11.4 Immature Gran % (Auto) 0.200 Neut % (Auto) 48.8 Lymph % (Auto) 41.5 H [place] % (Auto) 7.0 Eos % (Auto) 2.2 Baso % (Auto) 0.3 Absolute Neuts (auto) 2.9 Absolute Lymphs (auto) 2.50 Total Counted Not Reportable Sodium 143 Potassium 4.4 Chloride 111 H Carbon Dioxide 24.0 Anion Gap 8 BUN 8 Creatinine 0.86 Estim Creat Clear Calc 87.10 Est GFR (MDRD) Af Amer 104 Est GFR (MDRD) Non-Af 86 BUN/Creatinine Ratio 9.3 L Glucose 79 Calcium 8.6 Total Bilirubin 0.80 AST 192 H ALT 489 H Alkaline Phosphatase 188 H Troponin I < 0.015 Total Protein 6.5 Albumin 2.9 L Globulin 3.6 Albumin/Globulin Ratio 0.8 L Lipase 61 L Medical Necessity - Tobacco Use Smoking Status: Current every day smoker Tobacco Use: Cigarettes Assessment/Plan All Active Problems (Last Updated 02/16/19 @ 06:40 by Kaiser Lim MD) Choledocholithiasis (Acute) Impression: choledocholithiasis Plan: lap aicha tomorrow. I have discussed the above with the patient. I have explained the procedure to the patient. I have counseled the patient as to the risks of the procedure, including but not limited to: infection, bleeding, injury to any blood vessels/nerves, scar tissue, injury to any intrabdominal organs, injury to kidney/ureters, injury to bowel/bladder, injury to the common bile duct/biliary tree, bile leakage, intraabdominal abscess/bleeding, hernias at incisional sites, wound infections, possible open procedure, complications of anesthesia, postoperative pneumonia/cardiac problems/blood clots etc. the patient understands. She agrees to proceed. I have answered all questions to the patient?s satisfaction and the patient has no further questions.
[2019-02-17 14:07] LABS: HEPATITIS B SURFACE AG Negative (Negative); Hepatitis A IgM Antibody Negative (Negative); Hepatitis B Core AB IgM Negative (Negative)
[2019-02-17] MEDS: Acetaminophen 325 MG Tablet 650 MG PO (17:53)
[2019-02-17] MEDS: 0.9% Normal Saline 1,000 ML 150 ML IV (18:44)
[2019-02-18] VITALS (12 sets, daily range): BP systolic 106–123; BP diastolic 57–84; PULSE 43–110; RESP 16–18; TEMP 36.6–36.8; O2SAT 95–99; BMI 31.7
[2019-02-18] MEDS: 0.9% Normal Saline 1,000 ML 150 ML IV ×2 (03:59→16:28)
[2019-02-18] MEDS: Ondansetron 4 MG/2 ML Vial IV (03:59)
[2019-02-18] MEDS: 0.9% NaCl Peripheral Flush Adult/Peds IV ×2 (03:59→16:28)
[2019-02-18 06:21] LABS: Hematocrit 33.3 % (37-47); Hemoglobin 10.7 g/dl (12.0-15.0); Mean Corp Hgb Conc 32.1 g/gl (32-36); Mean Corpuscular Hgb 27.9 pg (27.0-32.0); Mean Corpuscular Volume 86.9 fL (81-99); Mean Platelet Vol. 10.6 fl (6.2-12.0); Platelet Count 181 K/mm3 (150-450); RBC Distribution Width CV 13.7 % (11.6-14.6); RBC Distribution Width SD 43.8 fl (35.1-43.9); Red Blood Count 3.83 M/mm3 (4.2-5.4); White Blood Count 6.5 K/mm3 (4.4-11.0)
[2019-02-18 06:27] LABS: Scan Indicated on CBC? Y/N NO
[2019-02-18 06:39] LABS: ALB/GLOB Ratio 0.9 RATIO (0.9-2.4); AST(SGOT) 98 U/L (15-37); Alanine Aminotransfer ALT/SGPT 344 U/L (13-56); Albumin, Serum 2.9 g/dL (3.2-5.0); Alkaline Phosphatase 181 U/L (45-117); Anion Gap 8 (5-15); BUN 9 mg/dL (7-18); BUN/Creat Ratio 11.7 RATIO (10-20); Calcium,Total 8.4 mg/dL (8.5-10.1); Chloride 111 mmol/L (98-107); Creatinine, Serum 0.77 mg/dL (0.55-1.02); EST Glomerular Filtration Rate 98 mL/min (>60); Est Glom Filt Rate - Afr Amer 119 mL/min (>60); Estimated Creatinine Clearance 97.28 ml/min; Globulin 3.3 g/dL (2.2-4.2); Glucose 87 mg/dL (74-106); Lipase 63 U/L (73-393); Potassium 3.9 mmol/L (3.5-5.1); Protein, Total 6.2 g/dL (6.4-8.2); Sodium Level 142 mmol/L (136-145)
--- NOTE | 2019-02-18 07:30 | GALL_PTH ---
PATIENT: TIA VINSON LOC: [facility]3 U#:[id number] AGE/SX: 23/F ROOM: MS315 RE02/16/[address]: Dr. Delonte Jenkins DO : 1995 BED: 1 DIS: 02/18/2019 SPEC #: [id number] RECD: 02/18/19 14:58 STATUS: RUY REQ #: [id number] ANGIE: 02/18/19 07:[address]: Caterina Farrell DEPT: SURGICAL PATHOLOGY RECD BY: Saurabh Monroy ENTERED: 02/19/19 09:28 SP TYPE: GALLBLADDE OTHR DR: MD Dr. Caterina Merino MD Dr. Mark Tereletsky, DO No Primary Care Phys Tissues: Gallbladder, NOS Procedures: Surgery Specimen Level III Comments: @ Ordering doctor for SUIII edited from to DR.LWANG Jose SU at 02/19/19 1528 @ Submitting doctor edited from to DR.LWANG Jose SU at 02/19/19 1528 HEADER OPERATION: Laparoscopic cholecystectomy PRE-OP DIAGNOSIS: Choledocholithiasis TISSUE SUBMITTED: Gallbladder MICROSCOPIC DIAGNOSIS Gallbladder, laparoscopic cholecystectomy: Chronic cholecystitis with cholelithiasis. FA:[email or web address] 02/20/19 MICROSCOPIC DESCRIPTION Slides are reviewed. GROSS DESCRIPTION Received in fixative is one container labeled with the patient's name and designated gallbladder. The specimen consists of greenish-thomas, partially perforated gallbladder measuring 10.6 x 3 x 1.5 cm. The serosal aspect is green and smooth. Opening through the gallbladder reveals gallbladder lumen filled with multiple yellow-green colored stones ranging from 1 to 3 mm in greatest dimension. The stones count more than 50 in number. The gallbladder mucosa is pinkish-green, smooth and velvety. The gallbladder wall measures 0.2 to 0.3 cm in maximum thickness. The common cystic duct is identified and contains multiple stones. [place] Se[place] sections of the gallbladder wall and the common cystic duct margins are submitted in one cassette. / FA:[email or web address] 02/19/19 TC:3 CPT:[id number]
--- NOTE | 2019-02-18 10:15 | PCM.PROGNOTE ---
Patient Problems: Active and Suspected Problems (Last Updated 02/16/19 @ 06:40 by Kaiser Lim MD) Choledocholithiasis (Acute) Subjective: Patient seen and examined. Talking on phone. Nursing reports patient's blood pressure was low last evening, 90 systolically and patient reported dizziness, lightheadedness at that time. She denies further symptoms. Denies pain. Plan for laparoscopic cholecystectomy this afternoon. - Physical Exam General: Alert, Oriented x3, Cooperative HEENT: Atraumatic, PERRLA, EOMI, Normocephalic Neck: Supple, No JVD, Negative Carotid Bruits Lungs: Clear to auscultation, Normal air movement Cardiovascular: Regular rate, Regular Rhythm, Normal S1, Normal S2, No murmurs Abdomen: Bowel Sounds Present, Soft, Non Tender, Non-Distended Extremities: No clubbing, No cyanosis, No edema, Capillary Refill Less than 3 Seconds Skin: No rashes, No breakdown Musculoskeletal: No Tenderness to Palpation of Joints or Extremities Neurological: Cranial nerves II-XII grossly intact, Neuro grossly intact Psych/Mental Status: Normal Affect, Appropriate Vital Signs Temp Pulse Resp BP Pulse Ox 98.0 F 43 L 16 115/57 L 99 02/18/19 04:00 02/18/19 07:37 02/18/19 04:00 02/18/19 04:00 02/18/19 04:00 Oxygen Delivery Method Room Air Weight: 185 lb 13.595 oz Body Mass Index (BMI) 31.7 Intake and Output for Last 24 Hours 02/16/19 02/17/19 02/18/19 23:59 23:59 23:59 Intake Total 931 / 931 5355 / 5355 880 / 880 Output Total 1900 / 1900 Balance 931 / 931 3455 / 3455 880 / 880 Laboratory Tests Past 24 Hrs 02/18/19 02/18/19 05:55 05:55 WBC 6.5 RBC 3.83 L Hgb 10.7 L Hct 33.3 L MCV 86.9 MCH 27.9 MCHC 32.1 RDW 13.7 RDW Differential 43.8 Plt Count 181 MPV 10.6 Sodium 142 Potassium 3.9 Chloride 111 H Carbon Dioxide 23.0 Anion Gap 8 BUN 9 Creatinine 0.77 Estim Creat Clear Calc 97.28 Est GFR (MDRD) Af Amer 119 Est GFR (MDRD) Non-Af 98 BUN/Creatinine Ratio 11.7 Glucose 87 Calcium 8.4 L Total Bilirubin 0.40 AST 98 H ALT 344 H Alkaline Phosphatase 181 H Total Protein 6.2 L Albumin 2.9 L Globulin 3.3 Albumin/Globulin Ratio 0.9 Lipase 63 L Medical Necessity - Tobacco Use Smoking Status: Current every day smoker Tobacco Use: Cigarettes Assessment/Plan All Active Problems (Last Updated 02/16/19 @ 06:40 by Kaiser Lim MD) Choledocholithiasis (Acute) 1. Intractable abdominal pain secondary to acute choledocholithiasis-CT of abdomen and pelvis on admission shows dilated intrahepatic and extrahepatic bile ducts with what appears to be biliary sludge. MRCP shows distended gallbladder with gallstones and sludge. Mild intrahepatic biliary duct dilatation. 2 mm filling defect in the mid to distal common bile duct consistent with choledocholithiasis. Dr. Farrell/Dr. Campos, general surgery on consult. Patient underwent ERCP 02/17/2019 which showed choledocholithiasis. Bilateral sphincterotomy was performed and biliary tree was swept. Plan for laparoscopic cholecystectomy 02/18/2019. PRN pain regimen. PRN antiemetics. IV Zosyn. 2. Elevated LFTs-secondary to #1. Trending down. 3. Tobacco dependence-encouraged smoking cessation. DVT prophylaxis-low risk, not indicated. This patient was seen by GUANAKO Mota under the supervision of Dr. Jenkins.
[2019-02-18 11:22] LABS: Hep C Antibodies 0.1 s/co ratio (0.0-0.9)
--- NOTE | 2019-02-18 14:03 | OP.PCM_ITS ---
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 Appropriate time out protocol was followed. She was then placed in the supine position on the operating room table. The patient was then placed under general endotracheal anesthesia. The abdomen was then prepped with a sterile surgical skin preparation and sterile surgical drapes were placed. The supraumbilical skin fold was grasped with penetrating clamps and the skin and subcutaneous tissues were infiltrated with 0.25% marcaine with epinephrine. A skin incision was then made with a 15 blade scalpel. The anterior abdominal wall was elevated and a Veress needle was carefully inserted into the intraabdominal cavity. It was checked to be in the proper position with a normal saline drop test. A CO2 pneumoperitoneum was then created. Once this was achieved, then the Veress needle was removed and an 11mm trocar was placed in its stead. A 10mm laparoscope was then inserted into the trocar and careful attention was directed to the intraabdominal contents. There was no evidence of injury to any intraabdominal organs from insertion of the Veress needle or the trocar. Under direct visualization, a 5mm subxiphoid trocar and two lateral 5mm right subcostal trocars were placed. The skin and subcutaneous tissues at these sites were infiltrated with 0.25% marcaine with epinephrine prior to placement of these trocars. Attention was then directed to the right upper quadrant of the abdomen. Graspers were placed in the lateral trocars to grasp the distal aspect of the gallbladder and direct it cephalad and to grasp the gallbladder at Marti?s pouch and direct it laterally. Dissection then began on the proximal gallbladder continuing down to the area of the triangle of Calot to bluntly dissect out the cystic duct. The neck of the gallbladder was identified and blunt dissection continued to dissect out a segment of the cystic duct. A clip was then placed on the neck of the gallbladder. Two clips were placed proximally and then it was transected between the proximal and distal clips. The gallbladder was then from the liver bed using electrocautery and thus able to be brought out of the umbilical port. It was then forwarded to pathology for analysis. The liver bed was carefully examined. There was no evidence of bile leakage or bleeding. The cystic duct stump and cystic artery stump had their clips intact and there was no evidence of bile leakage or bleeding. The remainder of the abdomen was grossly normal. The CO2 was released and all trocars removed intact. The periumbilical fascia was approximated with a [id number] 0 vicryl suture. All skin incision were closed with 4-0 monocryl in a subdermal fashion. Cavilol and Steristrips were used to reinforce the skin closure. Sterile dressings were applied to all wounds. The patient was extubated and brought to the Recovery Room in stable condition. - Complications none noted - Admit VTE Documentation VTE Present on Admission: Yes VTE Mechan Device Prophylaxis: SCD's
[2019-02-18] MEDS: Bupiv/Epi 0.25% 30 ML Vial (14:05)
--- NOTE | 2019-02-18 14:21 | DCINST_ITS ---
Discharge Diet: No Restrictions - drink plenty of fluids Discharge Activity: Return to Normal Activity, May not drive while taking narcot ic pain medications. Lifting Restrictions: no lifting greater than 20 pounds for two weeks Call your doctor if your incision/area has: Continuous Slow Oozing, Foul Smelling Discharge Call your doctor if you observe: Fever of 101 or Higher Additional Dressing/Incision Instructions:: Leave dressings in place. May get wet in shower. Do not soak - no tub baths/swimming until further notice Allergies/Adverse Reactions: Allergies aspirin [ASA] Allergy (Verified 02/16/19 02:27) Swelling codeine Allergy (Verified 02/16/19 02:27) Nausea Doesn't make her feel better latex Allergy (Verified 02/16/19 02:27) Rash Medications to take at Discharge Dicyclomine HCl [Bentyl] 20 mg PO TIDAC #20 cap 02/11/19 Hydrocodone/Acetaminophen [[place] 5-325 Tablet] 1 ea PO Q8 PRN 5 Days #15 tab 02/18/19 The following prescriptions were given: Hydrocodone/Acetaminophen [[place] 5-325 Tablet] 1 ea PO Q8 PRN 5 Days #15 tab PRN Reason: Mod-Severe Pain (4-1010) Prescription Printed Primary Care Physician: Care Physician,No Primary [Primary Care Provider] - Test Results: Test results from this visit will be discussed in further detail at your follow- up appointment, if applicable. Please Follow Up With: Caterina Farrell MD - call When: to be seen in 7-10 days, please call for date and time, thank you
[2019-02-18] MEDS: Ketorolac 15 MG/ML Vial IV (16:28)
--- NOTE | 2019-02-18 16:49 | PCM.DC.BLA ---
Discharge Summary Date of Admission: 02/16/19 Date of Discharge: 02/18/19 Summary: 23 y/o otherwise healthy WF admitted to hospital from ED for complaint of epigastric abdominal pain. Found to have elevated LFTs and CT scan revealed dilated intra and extrahepatic ducts. Underwent MRCP and found to have choledocholithiasis. Underwent ERCP on 02/17/19 and had removal of choledocholithiasis. Underwent laparoscopic cholecystectomy on 02/18/19 and tolerated procedure well. Discharged to home - tolerating regular diet and discharged on oral pain medications. To follow up as an outpatient. Patient Problems: Active and Suspected Problems (Last Updated 02/16/19 @ 06:40 by Kaiser Lim MD) Choledocholithiasis (Acute) - Physical Exam Vital Signs Temp Pulse Resp BP Pulse Ox 97.8 F 45 L 16 121/64 H 97 02/18/19 16:10 02/18/19 16:10 02/18/19 16:10 02/18/19 16:10 02/18/19 16:10 Oxygen Delivery Method Room Air Weight: 84.3 kg Body Mass Index (BMI) 31.7 Intake and Output for Last 24 Hours 02/16/19 02/17/19 02/18/19 23:59 23:59 23:59 Intake Total 931 / 931 5355 / 5355 1380 / 1380 Output Total 1900 / 1900 Balance 931 / 931 3455 / 3455 1380 / 1380 Laboratory Tests Past 24 Hrs 02/16/19 02/18/19 02/18/19 05:45 05:55 05:55 WBC 6.5 RBC 3.83 L Hgb 10.7 L Hct 33.3 L MCV 86.9 MCH 27.9 MCHC 32.1 RDW 13.7 RDW Differential 43.8 Plt Count 181 MPV 10.6 Sodium 142 Potassium 3.9 Chloride 111 H Carbon Dioxide 23.0 Anion Gap 8 BUN 9 Creatinine 0.77 Estim Creat Clear Calc 97.28 Est GFR (MDRD) Af Amer 119 Est GFR (MDRD) Non-Af 98 BUN/Creatinine Ratio 11.7 Glucose 87 Calcium 8.4 L Total Bilirubin 0.40 AST 98 H ALT 344 H Alkaline Phosphatase 181 H Total Protein 6.2 L Albumin 2.9 L Globulin 3.3 Albumin/Globulin Ratio 0.9 Lipase 63 L Hepatitis A IgM Ab Negative Hep Bs Antigen Negative Hep B Core IgM Ab Negative Hepatitis C Ab (EIA) 0.1
--- NOTE | 2019-02-18 17:31 | DCINST_ITS ---
- Discharge Diagnoses Current Active Problems: Current Active and Chronic Problems (Last Updated 02/16/19 @ 06:40 by Kaiser Lim MD) Choledocholithiasis (Acute) You will use the following diet at home:: No restrictions Discharge Activity: Return to Normal Activity, May not drive while taking narcotic pain medications. Call your doctor if your incision/area has: Continuous Slow Oozing, Foul Smelling Discharge Call your doctor if you observe: Fever of 101 or Higher Additional Dressing/Incision Instructions:: Leave dressings in place. May get wet in shower. Do not soak - no tub baths/swimming until further notice Allergies/Adverse Reactions: Allergies aspirin [ASA] Allergy (Verified 02/16/19 02:27) Swelling codeine Allergy (Verified 02/16/19 02:27) Nausea Doesn't make her feel better latex Allergy (Verified 02/16/19 02:27) Rash Medications to take at Discharge Dicyclomine HCl [Bentyl] 20 mg PO TIDAC #20 cap 02/11/19 Hydrocodone/Acetaminophen [[place] 5-325 Tablet] 1 ea PO Q8 PRN 5 Days #15 tab 02/18/19 The following prescriptions were given: Hydrocodone/Acetaminophen [[place] 5-325 Tablet] 1 ea PO Q8 PRN 5 Days #15 tab PRN Reason: Mod-Severe Pain (4-06/06) Prescription Printed Primary Care Physician: Care Physician,No Primary [Primary Care Provider] - Test Results: Test results from this visit will be discussed in further detail at your follow- up appointment, if applicable. Please Follow Up With: Caterina Farrell MD - call When: to be seen in 7-10 days, please call for date and time, thank you Proposed Discharge Date: 02/18/19
--- NOTE | 2019-02-18 17:32 | PCM.DC.SUM ---
Discharge Date and Diagnosis Date of Admission: 02/16/19 Date of Discharge: 02/18/19 - Primary Discharge Diagnosis Active and Suspected Problems (Last Updated 02/16/19 @ 06:40 by Kaiser Lim MD) 1. Intractable abdominal pain secondary to acute choledocholithiasis 2. Elevated LFTs-secondary to #1. 3. Tobacco dependence - Secondary Discharge Diagnosis Chronic Problems (Last Updated 02/16/19 @ 06:40 by Kaiser Lim MD) Breech delivery (Chronic) delivery delivered (Chronic) Hospital Course and Treatment Imaging Results: Diagnostic Data Chest X-Ray 02/16/19 02:51 IMPRESSION: Normal x-ray examination of the chest. Electronically Signed: Saurabh Devries MD at 4:06 EDT Tel , Service support , Abdomen/Pelvis CT 02/16/19 03:19 IMPRESSION: Dilated intrahepatic and extra hepatic bile ducts with what appears to be biliary sludge. Electronically Signed: Liset Garner MD at 4:54 EDT , Service support , MRCP 02/16/19 07:19 IMPRESSION: The study is limited by patient motion. Distended gallbladder with gallstones and sludge. Mild intrahepatic biliary duct dilatation. 2 mm filling defect in the mid to distal common bile duct, consistent with choledocholithiasis. Mildly dilated common bile duct, measuring 7 mm. Electronically Signed: Edvin Lamb, at 11:35 EDT Tel , Service support , ERCP X-Ray 02/17/19 07:00 IMPRESSION: No obvious filling defect seen within the CBD. Probably the stones noted in the MRCP where removed during the procedure. Electronically Signed: Katie Jones, at 9:42 EDT Tel , Service support , Dr. Farrell- General Surgery Operations: [email or web address], ERCP Procedures: None Summary of Care Provided: The patient is a 23 year old F admitted 02/16/2019 due to abdominal pain. 1. Intractable abdominal pain secondary to acute choledocholithiasis-CT of abdomen and pelvis on admission shows dilated intrahepatic and extrahepatic bile ducts with what appears to be biliary sludge. MRCP shows distended gallbladder with gallstones and sludge. Mild intrahepatic biliary duct dilatation. 2 mm filling defect in the mid to distal common bile duct consistent with choledocholithiasis. Dr. Farrell/Dr. Campos, general surgery on consult. Patient underwent ERCP 02/17/2019 which showed choledocholithiasis. Bilateral sphincterotomy was performed and biliary tree was swept. Patient further underwent laparoscopic cholecystectomy 02/18/[address] Farrell. Follow-up with Dr. Farrell in 7 to 10 days. 2. Elevated LFTs-secondary to #1. Trending down. 3. Tobacco dependence-encouraged smoking cessation. General: Alert, Oriented x3, Cooperative HEENT: Atraumatic, PERRLA, EOMI, Normocephalic Neck: Supple, No JVD, Negative Carotid Bruits Lungs: Clear to auscultation, Normal air movement Cardiovascular: Regular rate, Regular Rhythm, Normal S1, Normal S2, No murmurs Abdomen: Bowel Sounds Present, Soft, Non Tender, Non-Distended Extremities: No clubbing, No cyanosis, No edema, Capillary Refill Less than 3 Seconds Skin: No rashes, No breakdown Musculoskeletal: No Tenderness to Palpation of Joints or Extremities Neurological: Cranial nerves II-XII grossly intact, Neuro grossly intact Psych/Mental Status: Normal Affect, Appropriate Patient seen and examined prior to discharge. Physical assessment as noted above. Patient is stable for discharge with follow up recommendations as noted above. This patient was seen by GUANAKO Mota under the supervision of Dr. Jenkins. - Physical Exam Vital Signs Temp Pulse Resp BP Pulse Ox 97.8 F 45 L 16 121/64 H 97 02/18/19 16:10 02/18/19 16:10 02/18/19 16:10 02/18/19 16:10 02/18/19 16:10 Oxygen Delivery Method Room Air Weight: 185 lb 13.595 oz Body Mass Index (BMI) 31.7 Intake and Output for Last 24 Hours 02/16/19 02/17/19 02/18/19 23:59 23:59 23:59 Intake Total 931 / 931 5355 / 5355 1380 / 1380 Output Total 1900 / 1900 Balance 931 / 931 3455 / 3455 1380 / 1380 Laboratory Tests Past 24 Hrs 02/16/19 02/18/19 02/18/19 05:45 05:55 05:55 WBC 6.5 RBC 3.83 L Hgb 10.7 L Hct 33.3 L MCV 86.9 MCH 27.9 MCHC 32.1 RDW 13.7 RDW Differential 43.8 Plt Count 181 MPV 10.6 Sodium 142 Potassium 3.9 Chloride 111 H Carbon Dioxide 23.0 Anion Gap 8 BUN 9 Creatinine 0.77 Estim Creat Clear Calc 97.28 Est GFR (MDRD) Af Amer 119 Est GFR (MDRD) Non-Af 98 BUN/Creatinine Ratio 11.7 Glucose 87 Calcium 8.4 L Total Bilirubin 0.40 AST 98 H ALT 344 H Alkaline Phosphatase 181 H Total Protein 6.2 L Albumin 2.9 L Globulin 3.3 Albumin/Globulin Ratio 0.9 Lipase 63 L Hepatitis A IgM Ab Negative Hep Bs Antigen Negative Hep B Core IgM Ab Negative Hepatitis C Ab (EIA) 0.1 Discharge Diet: No Restrictions - drink plenty of fluids Discharge Activity: Return to Normal Activity, May not drive while taking narcotic pain medications. Call your doctor if your incision/area has: Continuous Slow Oozing, Foul Smelling Discharge Call your doctor if you observe: Fever of 101 or Higher Additional Dressing/Incision Instructions:: Leave dressings in place. May get wet in shower. Do not soak - no tub baths/swimming until further notice Home Medications: Medications to take at Discharge Dicyclomine HCl [Bentyl] 20 mg PO TIDAC #20 cap 02/11/19 Hydrocodone/Acetaminophen [[place] 5-325 Tablet] 1 ea PO Q8 PRN 5 Days #15 tab 02/18/19 Following Prescrptions Were Given to Patient: Hydrocodone/Acetaminophen [[place] 5-325 Tablet] 1 ea PO Q8 PRN 5 Days #15 tab PRN Reason: Mod-Severe Pain (4-10/10) Prescription Printed Primary Care Physician: Care Physician,No Primary [Primary Care Provider] - Please Follow Up With: Caterina Farrell MD - call When: to be seen in 7-10 days, please call for date and time, thank you Disposition: Home Minutes spent on discharge:: 35 Patient Condition:: Stable Medical Necessity - Tobacco Use Smoking Status: Current every day smoker Tobacco Use: Cigarettes Meaningful Use Info Meaningful Use Diagnoses (Choose all that apply): None applicable
== END 2019-02-18 17:55 | disposition home or self-care (01) | DRG 263 ==
LOC: ED 04:37 → MS3 07:08
PROVIDERS: Hospitalist; Nurse Practitioner Family; Surgery; Admitting Provider Hospitalist; Emergency Provider Emergency Medicine; Visit Provider Internal Medicine
PROC: 0FC98ZZ Extirpation of Matter from Common Bile Duct, Via Natural or Artificial Opening Endoscopic (ICD-10-PCS; CPT 43260; principal; 2019-02-17 07:00)
PROC: 0FT44ZZ Resection of Gallbladder, Percutaneous Endoscopic Approach (ICD-10-PCS; CPT 47610; principal; 2019-02-18 12:45)
DX: K80.64 Calculus of gallbladder and bile duct with chronic cholecystitis without obstruction (principal); R00.1 Bradycardia, unspecified; F17.210 Nicotine dependence, cigarettes, uncomplicated; R79.89 Other specified abnormal findings of blood chemistry
CPT/HCPCS: 36415; 71046; 74177; 74181; 74328; 76000; 80053; 80074; 83690; 83735; 84484; 84703; 85025; 85027; 85379; 85610; 88304; 93005; 99285; J7030; J7120; Q9967; A4216; J2405

== ENCOUNTER 2019-11-16 18:10 | Emergency (ER) | payer MEDICAID, SELFPAY ==
[2019-02-18 10:18] VITALS: BMI 31.7
[2019-11-16 18:12] VITALS: BP 133/65; PULSE 90; RESP 17; O2SAT 100
[2019-11-16 18:13] VITALS: BP 133/65; PULSE 96; RESP 16; TEMP 36.6; O2SAT 100; BMI 33.5
--- NOTE | 2019-11-16 18:20 | RAD_ITS ---
STUDY: X-RAY CHEST REASON FOR EXAM: Female, 23 years old. DRY COUGH X 1 WEEK, NAUSEA TECHNIQUE: Single AP portable view of the chest. COMPARISON: 02/16/2019 FINDINGS: The lungs are clear and expanded. There is no demonstrated pleural abnormality. Normal size heart. Normal mediastinum and olayinka. Normal visualized pulmonary arteries. Normal visualized aortic arch and descending thoracic aorta. Normal visualized thoracic spine. Normal visualized ribs, clavicles, and shoulders. There is no demonstrated abnormality of the visualized soft tissue structures of the upper abdomen. RAD/Chest 1 View (Portable) IMPRESSION: Normal x-ray examination of the chest. Electronically Signed: Franco Gleason MD at 18:41 EDT Tel , Service support ,
--- NOTE | 2019-11-16 19:22 | ED.DCSUM_ITS ---
- ER Visit Summary Date of Service: 11/16/19 Chief Complaint: Cough History of Present Illness: The patient is a 23 F presenting with URI symptoms and cough for the past 3 days. She states she has had chills with no fever. She has had ear pain, congestion, sore throat, dry cough. She has mild shortness of breath. She denies sick contacts. Denies recent travel. She is a smoker. Denies other complaints. Physical Examination: Vitals are stable. Patient is afebrile. Alert no acute distress. Pulse ox 100% on room air HEENT exam is unremarkable. Pharynx is normal. TMs normal bilaterally. Neck is supple. No meningismus Lungs are clear and equal bilaterally. Heart is regular rate and rhythm. Abdomen is soft nontender nondistended. Extremities are unremarkable. Skin is warm and dry. No rash Remainder of exam is unremarkable. Emergency Department Course and Treatment: Influenza negative. Chest x-ray shows no acute process. Patient is advised social distancing. She is given coronavirus instructions. Advised to follow-up with primary care physician. Advised return to ED for worsening complaints. Disposition: Discharge home Impression: URI This note was generated with [employer] dictation software. It may contain incorrect words, spelling, and punctuation that were not noted in review of the chart prior to signing ED Disposition - Plan for ED Patient: Instructions: VIRAL SYNDROME (Adult) Referrals: Delonte Allen MD [STAFF PHYSICIAN] -
[2019-11-16 19:37] VITALS: BP 94/67; PULSE 91; RESP 16; O2SAT 99
== END 2019-11-16 19:39 | disposition home or self-care (01) ==
LOC: ED 18:30
PROVIDERS: Emergency Provider Emergency Medicine
DX: J06.9 Acute upper respiratory infection, unspecified (principal); F17.200 Nicotine dependence, unspecified, uncomplicated
CPT/HCPCS: 71045; 87804; 99282

== ENCOUNTER 2021-10-30 20:20 | Emergency (ER) | payer MEDICAID, SELFPAY ==
[2021-10-30 20:21] VITALS: BP 125/85; PULSE 97; RESP 16; TEMP 37.1; O2SAT 98; BMI 34.3
--- NOTE | 2021-10-30 20:40 | CM.ED ---
SW Note Referral Source: Case Find Referral Reason: No Primary Care Physician (PCP) SW reviewed chart and noted that patient has no PCP. SW provided patient with list of [facility] and [facility] List for reference. Patient said that she plans to follow up with PCP at [facility] as her mother goes there. Patient said that she has information regarding [facility]. No other issues or concerns voiced at this time. SW remains available for any additional needs. Plan: Provided patient with PCP information Rosalina FUNEZ
--- NOTE | 2021-10-30 20:44 | EX.ED.DYSGE1 ---
HPI History of Present Illness Chief Complaint: Dental Informant: patient Onset/Context/Timing Onset: Today Context: Gradual Onset Current Severity: Moderate Maximum Severity: Severe Narrative Narrative: Patient present secondary to left lower dental pain. Patient states she broke that tooth a couple days ago. This evening she has developed increased pain. PFSH PFSH Medical History no medical history no medical history Home Medications naproxen [Naprosyn] 500 mg PO BID PRN #20 tab 10/30/21 [Rx Last Taken Unknown] penicillin V potassium 500 mg PO 4X/DAY #40 tab 10/30/21 [Rx Last Taken Unknown] Allergy/AdvReac Type Severity Reaction Status Date / Time aspirin [ASA] Allergy Swelling Verified 10/30/21 20:22 codeine Allergy Nausea Verified 10/30/21 20:22 latex Allergy Rash Verified 10/30/21 20:22 Surgical History (Updated 10/30/21 @ 20:26 by Kyleigh Lowe) H/O tubal ligation H/O: Surgical History no surgical history no surgical history Social History Smoking Status: Current every day smoker tobacco type: cigarettes ROS ROS ED Constitutional Constitutional ED: Denies chills or fever(s) Eyes Eyes: Denies change in vision ENT ENT ED: Reports other Details: Left lower dental pain ; Denies sore throat Cardiovascular Cardiovascular: Denies chest pain Respiratory/Chest Respiratory/Chest: Denies cough or dyspnea Gastrointestinal Gastrointestinal: Denies abdominal pain, nausea or vomiting Musculoskeletal Musculoskeletal: Denies back pain or neck pain Integumentary Denies rash Neurologic Neurologic: Denies headache(s) Allergic/Immunologic Allergic/Immunologic ED: Denies urticaria EXAM Physical Exam Const Vital Signs: 10/30/21 20:21 Temperature 98.7 F Temperature Source Temporal Pulse Rate 97 Respiratory Rate 16 Blood Pressure 125/85 H Blood Pressure Mean 98 Pulse Ox 98 Oxygen Delivery Method Room Air Positive well nourished and well developed General Appearance ED: well developed HEENT Reports moist mucous membranes HEENT Narrative: No facial edema or erythema. Intraoral examination reveals tenderness palpation with mild surrounding gum edema along the left mandibular second premolar. No trismus. Posterior pharynx exam is normal. Eyes PERRL and EOMs intact bilaterally Neck supple Chest Wall inspection of chest normal and palpation of chest normal Resp normal respiratory effort and clear to auscultation bilaterally Cardio regular rate and regular rhythm GI non-tender Palpation: soft Extremity normal to inspection Neuro oriented x3 Sensorium / Orientation: alert Psych mental status grossly normal Skin no rashes or lesions noted [facility] Treatment and Re-Evaluation Comments:: Patient be treated with Pen-Vee K and naproxen, first dose is given here. She plans to follow-up with [facility]. Return instructions provided. Discharge Plan Triage Chief Complaint: Dental ED Provider: Angelica Marks Dx/Rx/DC Orders Clinical Impression: Odontalgia Instructions: ED Dental Pain Prescriptions: New penicillin V potassium 500 MG tablet 500 mg PO 4X/DAY Qty: 40 RF: 0 naproxen [Naprosyn] 500 mg tablet 500 mg PO BID PRN (Reason: pain) Qty: 20 RF: 0 Primary Care Provider: Care Physician,No Primary Referrals: [facility] [NON-STAFF] - As soon as possible Care Physician,No Primary [Primary Care Provider] - Disposition Disposition: Home, Self Care
[2021-10-30] MEDS: Naproxen 500 MG Tablet PO (20:47)
[2021-10-30] MEDS: Penicillin Vk 250 MG Tablet 500 MG PO (20:47)
== END 2021-10-30 21:08 | disposition home or self-care (01) ==
PROVIDERS: Emergency Provider Emergency Medicine; Visit Provider Emergency Medicine
DX: K08.89 Other specified disorders of teeth and supporting structures (principal); F17.210 Nicotine dependence, cigarettes, uncomplicated; Z79.1 Long term (current) use of non-steroidal anti-inflammatories (NSAID)
CPT/HCPCS: 99283

== ENCOUNTER 2024-01-08 20:06 | Emergency (ER) | payer MEDICAID, SELFPAY ==
[2024-01-08 20:07] VITALS: BP 131/73; PULSE 104; RESP 18; TEMP 36.4; O2SAT 99; BMI 36.4
--- NOTE | 2024-01-08 20:20 | RAD_ITS ---
INDICATION: deformity EXAMINATION/TECHNIQUE: X-RAY - XR Mandible Complete Min 4 Views COMPARISON: No relevant prior comparison study available FINDINGS: SOFT TISSUES: No soft tissue swelling or gas. No radiopaque foreign body. BONES/TMJs: No fracture or subluxation. No sclerotic or destructive changes observed. DENTITION: Multiple dental caries. There is a periapical lucency involving the right third mandibular molar. RAD/Mandible Min 4 Views IMPRESSION: Limited examination due to overlapping densities. Despite limitations: No definite fracture. Maxillofacial CT is a more sensitive examination. Right mandibular molar dental abscess. Electronically Signed: Watson Nichole MD at 21:29 EDT ,
== END 2024-01-08 22:54 | disposition left against medical advice (07) ==
LOC: ED 23:00
DX: Z53.21 Procedure and treatment not carried out due to patient leaving prior to being seen by health care provider (principal)
CPT/HCPCS: 70110